=== PATIENT | male | born 1965 | race Caucasian/White ===

== ENCOUNTER 2019-04-11 17:09 | Inpatient (IN) | payer MEDICAID ==
[~2019-04-11] VITALS: Ht 172.7 cm; Wt 101.2 kg
[~2019-04-11 17:09] MED LIST: IBUP200T76 PO
[2019-04-11] MEDS ORDERED: cloNIDine HCL 0.1 MG TAB PO ONE ×2 (18:00→20:30)
[2019-04-11 20:30] LABS: Basophils # (auto) 0.1 uL; Basophils % (auto) 0.7 % (0.0-2.0); Eosinophils # (auto) 0.6 uL; Eosinophils % (auto) 6.4 % (0.0-7.0); Hematocrit 45.5 % (41.0-53.0); Hemoglobin 15.4 g/dL (13.5-17.5); Lymphocytes # (auto) 2.6 uL; Lymphocytes % (auto) 27.4 % (10.0-50.0); Mean Corpuscular Hemoglobin 30.5 pg (28.0-32.0); Mean Corpuscular Hgb Conc. 33.8 g/dL (32.0-36.0); Mean Corpuscular Volume 90.2 fL (80.0-100.0); Monocytes % (auto) 10.6 % (0.0-12.0); Neutrophils # (auto) 5.3 uL; Neutrophils % (auto) 54.9 % (37.0-80.0); Platelet Count (auto) 247 10^3/uL (140-450); Red Blood Cells 5.04 10^6/uL (4.5-5.90); Red Cell Distribution Width 13.3 % (11.8-14.3); White Blood Cell 9.6 10^3/uL (4.4-10.8)
[2019-04-11 20:55] LABS: Calcium 8.9 mg/dL (8.5-10.1); Potassium 3.7 mmol/L (3.5-5.1)
[2019-04-11 21:00] LABS: Albumin 2.9 g/dL (3.4-5.0); Bilirubin, Total 0.2 mg/dL (0.2-1.0); Total Protein 7.4 g/dL (6.4-8.2)
[2019-04-11] MEDS ORDERED: hydrALAZINE HCL 20 MG/ML VL IV ONE (21:30)
[2019-04-11] MEDS ORDERED: PIPERACILLIN-TAZOB 3.375GM 100 ML IV ONE (21:30)
[2019-04-11] MEDS ORDERED: VANCOMYCIN 1GM/250ML 250 ML IV ONE (21:30)
[2019-04-11 22:31] LABS: Urine WBC None Seen /hpf (0 - 3)
[2019-04-11 22:59] LABS: Urine Bacteria NONE SEEN /hpf (None Seen); Urine Blood Negative /uL (Negative); Urine Specific Gravity 1.016 (1.001-1.035); Urine Sperm PRESENT /hpf (None Seen)
[2019-04-11] MEDS ORDERED: LORazepam 2MG/ML-1ML VIAL IV ONE (23:15)
[2019-04-12] MEDS ORDERED: DILTIAZEM HCL 25 MG/5 ML VIAL IV ONE (00:30)
[2019-04-12] MEDS ORDERED: ACETAMINOPHEN 325 MG TAB PO PRN (00:45)
[2019-04-12] MEDS ORDERED: ONDANSETRON HCL 4 MG/2 ML VIAL IV PRN (00:45)
[2019-04-12] MEDS ORDERED: TEMAZEPAM 15 MG CAP PO PRN (00:45)
[2019-04-12] MEDS ORDERED: traMADol HCL 50 MG TAB PO PRN (00:45)
[2019-04-12] MEDS ORDERED: LABETALOL HCL 5 MG/ML ML 20ML VIAL IV ONE (02:15)
[2019-04-12] MEDS ORDERED: LORazepam 0.5 MG TAB PO PRN (02:15)
[2019-04-12] MEDS: CLINDAMYCIN 600MG IV 50 ML IV SCH ×2 (05:32→14:12)
[2019-04-12 06:06] LABS: Basophils # (auto) 0.1 uL; Basophils % (auto) 0.6 % (0.0-2.0); Eosinophils # (auto) 0.6 uL; Eosinophils % (auto) 6.2 % (0.0-7.0); Hematocrit 45.2 % (41.0-53.0); Hemoglobin 15.3 g/dL (13.5-17.5); Lymphocytes # (auto) 2.9 uL; Lymphocytes % (auto) 27.9 % (10.0-50.0); Mean Corpuscular Hemoglobin 30.7 pg (28.0-32.0); Mean Corpuscular Hgb Conc. 33.8 g/dL (32.0-36.0); Mean Corpuscular Volume 90.8 fL (80.0-100.0); Monocytes # (auto) 0.9 uL; Monocytes % (auto) 9.1 % (0.0-12.0); Neutrophils # (auto) 5.9 uL; Neutrophils % (auto) 56.2 % (37.0-80.0); Platelet Count (auto) 229 10^3/uL (140-450); Red Blood Cells 4.98 10^6/uL (4.5-5.90); Red Cell Distribution Width 13.4 % (11.8-14.3); White Blood Cell 10.4 10^3/uL (4.4-10.8)
[2019-04-12 06:31] LABS: BUN/Creatinine Ratio 20.5; Calcium 8.3 mg/dL (8.5-10.1); Potassium 3.3 mmol/L (3.5-5.1)
[2019-04-12] MEDS ORDERED: buPROPion HCL 75 MG TAB PO SCH (07:00)
[2019-04-12] MEDS: NICARDIPINE 25MG/250ML BAG KIT 250 ML IV SCH ×2 (07:14→11:36)
[2019-04-12] MEDS ORDERED: cefTRIAXone 1GM/50ML D5W 50 ML IV SCH (09:00)
[2019-04-12] MEDS ORDERED: METOPROLOL TARTRATE 50 MG TAB PO SCH (10:00)
[2019-04-12] MEDS ORDERED: PANTOPRAZOLE 40 MG TAB PO SCH (10:00)
[2019-04-12] MEDS ORDERED: NICOTINE 14 MG/24HR TOPICAL PATCH TD SCH (10:00)
--- NOTE | 2019-04-12 10:52 | NUR ---
WOUND CARE NOTE: Wound care in to see patient per wound care request regarding Left elbow wound. Patient is 54 years old male with admitting diagnosis of Left Upper Extremity Cellulitis. He has history of High Lipids and Htn. Patient is resting in E.R. bed #6. He's waiting for ICU bed. Patient's eyes are closed, respond to verbal and tactile stimuli. Mild pain noted upon touching his Lt upper extremity. ER nurse Prudence reported that patient is ambulatory and able to turn and reposition self. His Juan score is 17. Noted 4x5cm open full thickness wound with no measurable depth to patient's L elbow. Wound is bright red, edematous with yellow necrotic tissue at center. L elbow wound is draining moderate amount of serous drainage, no odor noted. Per RN nursing notes, wound culture specimen already sent to lab for processing. Patient is very sleepy and unable to give information about his elbow wound. ARIS Foss reported that wound is from suspected "spider bite". Cleansed patient's Lt elbow wound with wound cleanser, patted dry with sterile gauze, applied Thera honey gel at wound base,covered with non-adhesive Opti foam, wrapped with Kerlix and secured with tape. Patient tolerated well. Unable to assess patient's sacral and back as patient is very sleepy, just medicated for nausea. Per ARIS Foss's report, patient can ambulate, turn and reposition himself and no other wound or pressure injury noted on skin examination. RECOMMENDATION: Daily/PRN dressing change to L elbow wound per MD order, Dietary consult, elevate affected extremity on pillows,redistribute pressure points with pillows, continue monitoring by wound care while patient is hospitalized. Addendum: 04/12/19 at 1242 by Arelis Mendez RN Amended: Links added.
[2019-04-12] MEDS ORDERED: LEVO500T21 PO (14:09)
[2019-04-12] MEDS ORDERED: CLIN300C8 PO (14:09)
[2019-04-12] MEDS ORDERED: MET50T PO (14:09)
[2019-04-12 14:30] VITALS: BP 135/98
== END 2019-04-12 15:43 | disposition home health service (06) | DRG 383 ==
LOC: ER 17:09 → TELE 17:10
PROVIDERS: ADMIT Nurse Practitioner Family; ATTEND Nurse Practitioner Family
DX: L03.114 Cellulitis of left upper limb (principal); E78.5 Hyperlipidemia, unspecified; I16.1 Hypertensive emergency; I10 Essential (primary) hypertension; L02.91 Cutaneous abscess, unspecified; L02.414 Cutaneous abscess of left upper limb; F17.210 Nicotine dependence, cigarettes, uncomplicated; Z88.5 Allergy status to narcotic agent; Z79.899 Other long term (current) drug therapy
CPT/HCPCS: 36415; 70450; 73200; 80048; 80053; 81001; 83605; 85025; 87040; 87077; 87186; 87205; 96365; 96366; 96367; 96375; G0378; J0696; J2543; J3490

== ENCOUNTER 2020-08-01 07:47 | Inpatient (IN) | payer MEDICAID ==
[~2020-08-01] VITALS: Ht 177.8 cm; Wt 97.9 kg
[~2020-08-01 07:47] MED LIST changes: +CLIN300C8 PO; +LEVO500T21 PO; +MET50T PO
[2020-08-01 08:59] LABS: Basophils # (auto) 0 10 ^3/uL (0-0.2); Basophils % (auto) 0.2 % (0.0-2.0); Eosinophils # (auto) 0 10 ^3/uL (0-0.8); Eosinophils % (auto) 0.1 % (0.0-7.0); Hemoglobin 19.1 g/dL (13.5-17.5); Mean Corpuscular Hgb Conc. 34.8 g/dL (32.0-36.0)
[2020-08-01 09:01] LABS: Hematocrit 54.8 % (41.0-53.0); Lymphocytes # (auto) 2.3 10 ^3/uL (0.4-5.4); Lymphocytes % (auto) 23.7 % (10.0-50.0); Mean Corpuscular Hemoglobin 32.2 pg (28.0-32.0); Mean Corpuscular Volume 92.6 fL (80.0-100.0); Monocytes # (auto) 1.2 10 ^3/uL (0-1.3); Monocytes % (auto) 12.3 % (0.0-12.0); Neutrophils # (auto) 6.2 10 ^3/uL (1.6-8.6); Neutrophils % (auto) 63.7 % (37.0-80.0); Nucleated Red Blood Cells % 0.2 %; Platelet Count (auto) 169 10^3/uL (140-450); Red Blood Cells 5.92 10^6/uL (4.5-5.90); Red Cell Distribution Width 13.9 % (11.8-14.3); White Blood Cell 9.8 10^3/uL (4.4-10.8)
[2020-08-01] MEDS ORDERED: cefTRIAXone 1GM/50ML D5W 50 ML IV ONE (09:15)
[2020-08-01] MEDS ORDERED: AZITHROMYCIN 500MG/ 250ML 250 ML IV ONE (09:15)
[2020-08-01 09:25] LABS: Albumin 3.4 g/dL (3.4-5.0); BUN/Creatinine Ratio 19.7; Bilirubin, Total 0.8 mg/dL (0.2-1.0); Calcium 9.1 mg/dL (8.5-10.1); Total Protein 8.9 g/dL (6.4-8.2)
[2020-08-01 09:26] LABS: Potassium 2.8 mmol/L (3.5-5.1)
[2020-08-01] MEDS ORDERED: dilTIAZem 25 MG/5 ML VIAL IV ONE ×2 (10:15→10:16)
[2020-08-01] MEDS ORDERED: dilTIAZem 125mg/125ml BAG KIT 125 ML IV ONE (10:15)
[2020-08-01] MEDS ORDERED: ENOXAPARIN SOD 100 MG/1 ML SYRINGE SC ONE ×2 (12:15→13:30)
[2020-08-01] MEDS ORDERED: NITROGLYCERIN 0.4 MG SL TAB SL PRN (12:45)
[2020-08-01] MEDS ORDERED: DexAMETHasone SOD PHOS 10MG/1ML VIAL INJ IV ONE (12:45)
[2020-08-01] MEDS ORDERED: METOPROLOL TARTRATE 50 MG TAB PO ONE (12:45)
[2020-08-01] MEDS ORDERED: PANTOPRAZOLE 40 MG/10 ML VIAL INJ IV ONE (12:45)
[2020-08-01] MEDS ORDERED: METOPROLOL TARTRATE 1MG/1ML-5ML VIAL IV PRN (12:45)
[2020-08-01] MEDS ORDERED: PROMETHAZINE HCL 25 MG/ML 1ML IV PRN (12:45)
[2020-08-01] MEDS ORDERED: levoFLOXacin 500MG 100 ML IV ONE (13:30)
[2020-08-01] MEDS: POTASSIUM CHL 20MEQ/100ML 100 ML IV SCH ×2 (13:53→17:07)
[2020-08-01] MEDS ORDERED: ALBUTEROL SULF HFA 90MCG INH 200DOSE IN SCH (14:00)
[2020-08-01 14:25] LABS: CRP High Sensitivity 1.94 mg/dL (< 0.3)
[2020-08-01] MEDS: ALBUTEROL SULF HFA 90MCG INH 200DOSE IN SCH ×2 (14:25→19:36)
[2020-08-01 15:32] LABS: Urine Bacteria NONE SEEN /hpf (None Seen); Urine Blood 1+ /uL (Negative); Urine Mucus FEW (None Seen); Urine Specific Gravity 1.026 (1.001-1.035); Urine WBC 3 /hpf (0 - 3)
[2020-08-01] MEDS ORDERED: TRAM50TA2 PO (15:45)
[2020-08-01] MEDS ORDERED: HCTZ25T PO (15:45)
[2020-08-01] MEDS ORDERED: BACL10TA PO (15:45)
[2020-08-01] MEDS ORDERED: OMEP-260 PO (15:45)
[2020-08-01] MEDS ORDERED: CLON0.1T14 PO (15:45)
[2020-08-01] MEDS ORDERED: IBUP800T24 PO (15:45)
[2020-08-01] MEDS ORDERED: BUPR75TA9 PO (15:45)
[2020-08-01] MEDS ORDERED: IOHEXOL 350 MG/ML 100ML IJ ONE (16:09)
[2020-08-01] MEDS: BUDESONIDE (INHALATION) 180 MCG IH IN SCH (19:36)
[2020-08-01] MEDS: ENOXAPARIN SOD 100 MG/1 ML SYRINGE SC SCH (21:38)
[2020-08-01] MEDS: ASCORBIC ACID 500 MG TAB PO SCH (21:39)
[2020-08-01] MEDS ORDERED: METOPROLOL TARTRATE 50 MG TAB PO SCH (22:00)
[2020-08-01] MEDS ORDERED: METOPROLOL TARTRATE 25 MG TAB PO ONE (22:30)
[2020-08-02 00:53] LABS: BUN/Creatinine Ratio 23.8; Calcium 8.3 mg/dL (8.5-10.1); Magnesium 2.1 mg/dL (1.6-2.6); Potassium 3.5 mmol/L (3.5-5.1)
[2020-08-02 02:44] VITALS: BP 139/101
[2020-08-02] MEDS ORDERED: dilTIAZem 25 MG/5 ML VIAL IV ONE (04:18)
[2020-08-02] MEDS ORDERED: dilTIAZem HCL 50 MG/10 ML VIAL IV ONE (04:21)
[2020-08-02 05:52] LABS: Basophils # (auto) 0 10 ^3/uL (0-0.2); Basophils % (auto) 0.1 % (0.0-2.0); Eosinophils # (auto) 0 10 ^3/uL (0-0.8); Hematocrit 50.9 % (41.0-53.0); Hemoglobin 17.1 g/dL (13.5-17.5); Lymphocytes # (auto) 1.6 10 ^3/uL (0.4-5.4); Lymphocytes % (auto) 24.4 % (10.0-50.0); Mean Corpuscular Hemoglobin 31.2 pg (28.0-32.0); Mean Corpuscular Hgb Conc. 33.6 g/dL (32.0-36.0); Mean Corpuscular Volume 92.8 fL (80.0-100.0); Monocytes # (auto) 1.2 10 ^3/uL (0-1.3); Monocytes % (auto) 17.8 % (0.0-12.0); Neutrophils # (auto) 3.8 10 ^3/uL (1.6-8.6); Neutrophils % (auto) 57.7 % (37.0-80.0); Nucleated Red Blood Cells % 0.8 %; Platelet Count (auto) 156 10^3/uL (140-450); Red Blood Cells 5.48 10^6/uL (4.5-5.90); Red Cell Distribution Width 13.5 % (11.8-14.3); White Blood Cell 6.6 10^3/uL (4.4-10.8)
[2020-08-02] MEDS: ALBUTEROL SULF HFA 90MCG INH 200DOSE IN SCH ×4 (06:00→21:15)
[2020-08-02 06:13] LABS: Albumin 2.8 g/dL (3.4-5.0); BUN/Creatinine Ratio 24.5; Magnesium 2.3 mg/dL (1.6-2.6); Potassium 3.7 mmol/L (3.5-5.1)
[2020-08-02 06:15] LABS: Bilirubin, Total 0.4 mg/dL (0.2-1.0); Total Protein 7.8 g/dL (6.4-8.2)
[2020-08-02] MEDS: BUDESONIDE (INHALATION) 180 MCG IH IN SCH ×2 (07:07→21:15)
--- NOTE | 2020-08-02 07:07 | NUR ---
PT ON 7L SM WITH SPO2 94% AND WAS EDUCATED REGARDING PRONING TO IMPROVE OXYGENATION. PT VERBALIZED UNDERSTANDING.
[2020-08-02] MEDS ORDERED: METOPROLOL TARTRATE 50 MG TAB PO SCH (10:00)
[2020-08-02] MEDS: levoFLOXacin 500MG 100 ML IV SCH (10:30)
[2020-08-02] MEDS: DexAMETHasone SOD PHOS 10MG/1ML VIAL INJ IV SCH (10:30)
[2020-08-02] MEDS: ZINC SULFATE 220mg CAP or TAB PO SCH (10:31)
[2020-08-02] MEDS: PANTOPRAZOLE 40 MG/10 ML VIAL INJ IV SCH (10:31)
[2020-08-02] MEDS: ASCORBIC ACID 500 MG TAB PO SCH ×2 (10:32→22:29)
[2020-08-02] MEDS: CHOLECALCIFEROL (VITD3) 2,000 UNIT CAP PO SCH (10:32)
[2020-08-02] MEDS: ENOXAPARIN SOD 100 MG/1 ML SYRINGE SC SCH (10:32)
[2020-08-02] MEDS ORDERED: METOPROLOL TARTRATE 25 MG TAB PO ONE (10:45)
[2020-08-02] MEDS: guaiFENesin-DM 100/10mg/5ml SYR PO PRN ×2 (15:19→22:32)
[2020-08-02] MEDS ORDERED: POTASSIUM CHL 20 Meq TABLET PO ONE (18:30)
[2020-08-02] MEDS: METOPROLOL TARTRATE 50 MG TAB PO SCH (22:28)
[2020-08-03] MEDS: guaiFENesin-DM 100/10mg/5ml SYR PO PRN ×3 (02:31→18:39)
[2020-08-03] MEDS ORDERED: LABETALOL HCL 5 MG/ML 4ML SYRINGE IV ONE (03:15)
[2020-08-03] MEDS: HYDROcodone-ACET 5/325MG TAB PO PRN ×2 (03:39→04:45)
[2020-08-03 06:22] LABS: Basophils # (auto) 0 10 ^3/uL (0-0.2); Basophils % (auto) 0.1 % (0.0-2.0); Eosinophils # (auto) 0 10 ^3/uL (0-0.8); Hematocrit 47.8 % (41.0-53.0); Hemoglobin 16.2 g/dL (13.5-17.5); Lymphocytes # (auto) 1.1 10 ^3/uL (0.4-5.4); Lymphocytes % (auto) 9.8 % (10.0-50.0); Mean Corpuscular Hemoglobin 31.7 pg (28.0-32.0); Mean Corpuscular Hgb Conc. 33.9 g/dL (32.0-36.0); Mean Corpuscular Volume 93.3 fL (80.0-100.0); Monocytes # (auto) 1.2 10 ^3/uL (0-1.3); Monocytes % (auto) 10.8 % (0.0-12.0); Neutrophils # (auto) 8.6 10 ^3/uL (1.6-8.6); Neutrophils % (auto) 79.3 % (37.0-80.0); Nucleated Red Blood Cells % 0.1 %; Platelet Count (auto) 167 10^3/uL (140-450); Red Blood Cells 5.12 10^6/uL (4.5-5.90); Red Cell Distribution Width 13.6 % (11.8-14.3); White Blood Cell 10.8 10^3/uL (4.4-10.8)
[2020-08-03] MEDS ORDERED: dilTIAZem 25 MG/5 ML VIAL IV ONE (06:30)
[2020-08-03] MEDS ORDERED: hydrALAZINE HCL 20 MG/ML VL IV ONE (06:30)
[2020-08-03 06:41] LABS: Calcium 7.9 mg/dL (8.5-10.1); Potassium 3.5 mmol/L (3.5-5.1)
[2020-08-03 06:42] LABS: CRP High Sensitivity 0.73 mg/dL (< 0.3)
[2020-08-03] MEDS: ALBUTEROL SULF HFA 90MCG INH 200DOSE IN SCH ×3 (08:16→23:43)
[2020-08-03] MEDS: BUDESONIDE (INHALATION) 180 MCG IH IN SCH ×2 (08:17→23:43)
[2020-08-03] MEDS ORDERED: REMDESIVIR PER PHARMACY IV SCH (11:15)
[2020-08-03] MEDS ORDERED: REMDESIVIR 200 MG in NS 210ml LOADING DOSE ADULT IV ONE (12:00)
[2020-08-03] MEDS: METOPROLOL TARTRATE 50 MG TAB PO SCH ×2 (12:03→23:02)
[2020-08-03] MEDS: levoFLOXacin 500MG 100 ML IV SCH (12:04)
[2020-08-03] MEDS: DexAMETHasone SOD PHOS 10MG/1ML VIAL INJ IV SCH (12:04)
[2020-08-03] MEDS: ASPirin 325 MG TAB PO SCH (12:04)
[2020-08-03] MEDS: CHOLECALCIFEROL (VITD3) 2,000 UNIT CAP PO SCH (12:04)
[2020-08-03] MEDS: ASCORBIC ACID 500 MG TAB PO SCH ×2 (12:04→23:02)
[2020-08-03] MEDS: ZINC SULFATE 220mg CAP or TAB PO SCH (12:04)
[2020-08-03] MEDS: ENOXAPARIN SOD 40 MG/0.4 ML SYRINGE SC SCH (12:04)
[2020-08-03] MEDS: PANTOPRAZOLE 40 MG/10 ML VIAL INJ IV SCH (12:05)
[2020-08-03] MEDS ORDERED: ALPRAZolam 0.25 MG TAB PO PRN (16:15)
[2020-08-03] MEDS ORDERED: POTASSIUM EFFERVESENT TAB 25 MEQ PO ONE (20:00)
[2020-08-04] MEDS: METOPROLOL TARTRATE 50 MG TAB PO SCH ×2 (00:40→22:00)
[2020-08-04] MEDS: hydrALAZINE HCL 20 MG/ML VL IV PRN ×2 (01:03→09:06)
[2020-08-04 03:40] VITALS: BP 186/113
[2020-08-04] MEDS ORDERED: amLODIPine BESYLATE 5 MG TAB PO ONE (04:30)
[2020-08-04] MEDS ORDERED: ALPRAZolam 0.25 MG TAB PO ONE (04:30)
[2020-08-04] MEDS ORDERED: HCTZ 25 MG TAB PO ONE (04:30)
[2020-08-04 06:40] VITALS: BP 141/123
[2020-08-04] MEDS: BUDESONIDE (INHALATION) 180 MCG IH IN SCH ×2 (06:40→22:00)
[2020-08-04] MEDS: ALBUTEROL SULF HFA 90MCG INH 200DOSE IN SCH ×3 (06:40→22:00)
[2020-08-04 07:13] LABS: Basophils # (auto) 0 10 ^3/uL (0-0.2); Eosinophils # (auto) 0 10 ^3/uL (0-0.8); Hematocrit 51.9 % (41.0-53.0); Hemoglobin 17.1 g/dL (13.5-17.5); Lymphocytes % (auto) 10.8 % (10.0-50.0); Mean Corpuscular Hemoglobin 30.9 pg (28.0-32.0); Mean Corpuscular Volume 93.4 fL (80.0-100.0); Monocytes # (auto) 1.2 10 ^3/uL (0-1.3); Monocytes % (auto) 11.9 % (0.0-12.0); Neutrophils # (auto) 7.5 10 ^3/uL (1.6-8.6); Neutrophils % (auto) 77.3 % (37.0-80.0); Nucleated Red Blood Cells % 0.2 %; Platelet Count (auto) 187 10^3/uL (140-450); Red Blood Cells 5.55 10^6/uL (4.5-5.90); Red Cell Distribution Width 13.4 % (11.8-14.3); White Blood Cell 9.7 10^3/uL (4.4-10.8)
[2020-08-04 07:26] LABS: Calcium 8.4 mg/dL (8.5-10.1); Potassium 3.4 mmol/L (3.5-5.1)
[2020-08-04] MEDS ORDERED: LORazepam 2MG/ML-1ML VIAL IV ONE (07:30)
[2020-08-04 07:36] LABS: BUN/Creatinine Ratio 19.6; CRP High Sensitivity 1.74 mg/dL (< 0.3)
[2020-08-04] MEDS: ASCORBIC ACID 500 MG TAB PO SCH ×2 (08:32→22:00)
[2020-08-04] MEDS: ENOXAPARIN SOD 40 MG/0.4 ML SYRINGE SC SCH (08:32)
[2020-08-04] MEDS: levoFLOXacin 500MG 100 ML IV SCH (08:32)
[2020-08-04] MEDS: ZINC SULFATE 220mg CAP or TAB PO SCH (08:32)
[2020-08-04] MEDS: guaiFENesin-DM 100/10mg/5ml SYR PO PRN (08:32)
[2020-08-04] MEDS: CHOLECALCIFEROL (VITD3) 2,000 UNIT CAP PO SCH (08:32)
[2020-08-04] MEDS: PANTOPRAZOLE 40 MG/10 ML VIAL INJ IV SCH (08:32)
[2020-08-04] MEDS: DexAMETHasone SOD PHOS 10MG/1ML VIAL INJ IV SCH (08:32)
[2020-08-04] MEDS: ASPirin 325 MG TAB PO SCH (08:32)
[2020-08-04] MEDS: HYDROcodone-ACET 5/325MG TAB PO PRN (09:05)
[2020-08-04] MEDS ORDERED: ALPRAZolam 0.25 MG TAB PO PRN (10:00)
[2020-08-04] MEDS ORDERED: PROPOFOL 100 ML IV ONE (10:40)
[2020-08-04] MEDS ORDERED: SUCCINYLCHOLINE CHLORIDE 20 MG/ML 10ML VIAL IV ONE ×2 (10:41→10:45)
[2020-08-04] MEDS ORDERED: ETOMIDATE (2MG/ML) 20ML VIAL IV ONE ×2 (10:43→10:45)
[2020-08-04] MEDS ORDERED: MIDAZOLAM DRIP 50 mg/50mL 50 ML IV ONE (10:43)
[2020-08-04 10:52] LABS: Albumin 3.1 g/dL (3.4-5.0); Bilirubin, Direct 0.4 mg/dL (0-0.2)
[2020-08-04 10:55] LABS: Bilirubin, Total 0.7 mg/dL (0.2-1.0)
[2020-08-04] MEDS: MIDAZOLAM DRIP 50 mg/50mL 50 ML IV SCH ×4 (10:55→23:30)
[2020-08-04] MEDS: PROPOFOL 100 ML IV SCH ×4 (10:55→23:30)
[2020-08-04 12:07] VITALS: BP 114/79
--- NOTE | 2020-08-04 12:50 | NUR ---
Hold PT, pt was intubated.
[2020-08-04] MEDS: REMDESIVIR 100mg in NS 230ml DAILYx4DAYS (NO VENT) IV SCH (16:27)
[2020-08-04] MEDS ORDERED: ACETAMINOPHEN 650 mg PER 20.3 mL UD GT ONE (18:00)
[2020-08-04 18:40] VITALS: BP 121/90
[2020-08-04 22:46] VITALS: BP 118/77
[2020-08-05] VITALS (8 sets, daily range): BP systolic 118–145; BP diastolic 58–100
[2020-08-05] MEDS: PROPOFOL 100 ML IV SCH ×4 (06:00→23:51)
[2020-08-05] MEDS: MIDAZOLAM DRIP 50 mg/50mL 50 ML IV SCH ×4 (06:00→23:49)
[2020-08-05 06:45] LABS: Basophils # (auto) 0 10 ^3/uL (0-0.2); Eosinophils # (auto) 0 10 ^3/uL (0-0.8); Hematocrit 49.7 % (41.0-53.0); Hemoglobin 16.7 g/dL (13.5-17.5); Lymphocytes # (auto) 1.2 10 ^3/uL (0.4-5.4); Lymphocytes % (auto) 15.4 % (10.0-50.0); Mean Corpuscular Hemoglobin 31.3 pg (28.0-32.0); Mean Corpuscular Hgb Conc. 33.6 g/dL (32.0-36.0); Mean Corpuscular Volume 93.4 fL (80.0-100.0); Monocytes # (auto) 1.2 10 ^3/uL (0-1.3); Monocytes % (auto) 15.7 % (0.0-12.0); Neutrophils # (auto) 5.2 10 ^3/uL (1.6-8.6); Neutrophils % (auto) 68.9 % (37.0-80.0); Nucleated Red Blood Cells % 0.1 %; Platelet Count (auto) 200 10^3/uL (140-450); Red Blood Cells 5.32 10^6/uL (4.5-5.90); Red Cell Distribution Width 13.6 % (11.8-14.3); White Blood Cell 7.6 10^3/uL (4.4-10.8)
[2020-08-05 07:06] LABS: Calcium 7.9 mg/dL (8.5-10.1); Magnesium 2.8 mg/dL (1.6-2.6); Potassium 3.2 mmol/L (3.5-5.1)
[2020-08-05 07:17] LABS: CRP High Sensitivity 3.89 mg/dL (< 0.3)
[2020-08-05] MEDS: levoFLOXacin 500MG 100 ML IV SCH (09:47)
[2020-08-05] MEDS: ASCORBIC ACID 500 MG TAB PO SCH ×2 (09:47→22:28)
[2020-08-05] MEDS: PANTOPRAZOLE 40 MG/10 ML VIAL INJ IV SCH (09:47)
[2020-08-05] MEDS: ASPirin 325 MG TAB PO SCH (09:47)
[2020-08-05] MEDS: ENOXAPARIN SOD 40 MG/0.4 ML SYRINGE SC SCH (09:47)
[2020-08-05] MEDS: CHOLECALCIFEROL (VITD3) 2,000 UNIT CAP PO SCH (09:47)
[2020-08-05] MEDS: DexAMETHasone SOD PHOS 10MG/1ML VIAL INJ IV SCH (09:47)
[2020-08-05] MEDS: ZINC SULFATE 220mg CAP or TAB PO SCH (09:48)
[2020-08-05] MEDS: METOPROLOL TARTRATE 50 MG TAB PO SCH (10:00)
--- NOTE | 2020-08-05 12:00 | NUR ---
WOUND CARE NOTE: NOTIFIED BY BEDSIDE NURSE OF PATIENT'S INTUBATION STATUS. PATIENT IN ER BED 6, ICU STATUS. PATIENT AIRBORNE ISOLATION, ADMITTING DIAGNOSIS PNA, AFIB. PER BEDSIDE NURSE, PATIENT IS WOUND FREE AT THIS TIME. IMPLEMENTED SKIN/WOUND CARE PLAN AT THIS TIME. ORDERED HOSPITAL BED FOR PATIENT. PATIENT TO BE PLACED, PENDING DELIVERY BY E COMMERCE MANAGER. CURRENT SUKHI SCORE 10. RECOMMEND: FREQUENT TURN SCHEDULE Q 2 HOURS PRN CONDITION PERMITS, WITH PRESSURE REDISTRIBUTION, USING PILLOWS/WEDGES; BID/PRN APPLICATION WITH MOISTURE BARRIER CREAM, OPTIFOAM GENTLE SACRAL DRESSING PREVENTATIVE; SKIN/WOUND CARE PLAN, DIETARY CONSULT FOR INTUBATION STATUS, CONTINUED MONITORING BY WOUND CARE TEAM.
[2020-08-05] MEDS: REMDESIVIR 100mg in NS 230ml DAILYx4DAYS (NO VENT) IV SCH (16:59)
[2020-08-05] MEDS: ALBUTEROL SULF 2.5 MG/0.5ML(0.5%) NEB SOLN NEB SCH (23:26)
[2020-08-05] MEDS: BUDESONIDE (INHALATION) 0.5 MG/2 ML NEB NEB SCH (23:26)
[2020-08-06 02:07] VITALS: BP 126/88
[2020-08-06] MEDS: PROPOFOL 100 ML IV SCH ×5 (03:58→22:24)
[2020-08-06] MEDS: MIDAZOLAM DRIP 50 mg/50mL 50 ML IV SCH ×5 (03:59→23:13)
[2020-08-06 06:57] VITALS: BP 126/88
[2020-08-06] MEDS: ALBUTEROL SULF 2.5 MG/0.5ML(0.5%) NEB SOLN NEB SCH ×3 (06:57→22:10)
[2020-08-06] MEDS: BUDESONIDE (INHALATION) 0.5 MG/2 ML NEB NEB SCH ×2 (06:57→22:10)
[2020-08-06 08:53] LABS: Basophils # (auto) 0 10 ^3/uL (0-0.2); Eosinophils # (auto) 0 10 ^3/uL (0-0.8); Eosinophils % (auto) 0.1 % (0.0-7.0); Hematocrit 51.4 % (41.0-53.0); Hemoglobin 17.2 g/dL (13.5-17.5); Lymphocytes # (auto) 1.6 10 ^3/uL (0.4-5.4); Lymphocytes % (auto) 17.7 % (10.0-50.0); Mean Corpuscular Hemoglobin 31.5 pg (28.0-32.0); Mean Corpuscular Hgb Conc. 33.5 g/dL (32.0-36.0); Monocytes # (auto) 1.4 10 ^3/uL (0-1.3); Monocytes % (auto) 14.6 % (0.0-12.0); Neutrophils # (auto) 6.3 10 ^3/uL (1.6-8.6); Neutrophils % (auto) 67.6 % (37.0-80.0); Nucleated Red Blood Cells % 0.4 %; Platelet Count (auto) 243 10^3/uL (140-450); Red Blood Cells 5.46 10^6/uL (4.5-5.90); Red Cell Distribution Width 13.5 % (11.8-14.3); White Blood Cell 9.3 10^3/uL (4.4-10.8)
[2020-08-06 09:09] LABS: Albumin 2.5 g/dL (3.4-5.0); Magnesium 3.1 mg/dL (1.6-2.6); Potassium 3.4 mmol/L (3.5-5.1)
[2020-08-06 09:14] LABS: BUN/Creatinine Ratio 29.4; Bilirubin, Total 0.5 mg/dL (0.2-1.0); Total Protein 7.3 g/dL (6.4-8.2)
[2020-08-06 09:53] VITALS: BP 139/92
[2020-08-06] MEDS: PANTOPRAZOLE 40 MG/10 ML VIAL INJ IV SCH (10:40)
[2020-08-06] MEDS: DexAMETHasone SOD PHOS 10MG/1ML VIAL INJ IV SCH (10:40)
[2020-08-06] MEDS: ENOXAPARIN SOD 40 MG/0.4 ML SYRINGE SC SCH (10:42)
[2020-08-06] MEDS: levoFLOXacin 500MG 100 ML IV SCH (10:47)
[2020-08-06] MEDS: CHOLECALCIFEROL (VITD3) 2,000 UNIT CAP PO SCH (10:54)
[2020-08-06] MEDS: ASPirin 325 MG TAB PO SCH (10:54)
[2020-08-06] MEDS: ASCORBIC ACID 500 MG TAB PO SCH ×2 (10:54→20:48)
[2020-08-06] MEDS: ZINC SULFATE 220mg CAP or TAB PO SCH (10:54)
--- NOTE | 2020-08-06 11:30 | NUR ---
Nutrition Consult for Intubation Consider Jevity 1.2 at a goal rate of 65 ml/hr Consider TPN if TF is not medically feasible Est energy needs 1286-7993 kcal (14-18 kcal/kg BW 113.4kg) Est protein needs 75-98g (1-1.3g/kg IBW 75kg) Will monitor and reassess prn. Addendum: 08/06/20 at [address] Amended: Links added.
[2020-08-06 14:36] VITALS: BP 145/113
[2020-08-06] MEDS: REMDESIVIR 100mg in NS 230ml DAILYx4DAYS (NO VENT) IV SCH (16:45)
[2020-08-06 18:15] VITALS: BP 145/113
[2020-08-06 22:10] VITALS: BP 145/113
[2020-08-07] MEDS: PROPOFOL 100 ML IV SCH ×5 (00:47→21:00)
[2020-08-07 02:15] VITALS: BP 135/107
[2020-08-07] MEDS: MIDAZOLAM DRIP 50 mg/50mL 50 ML IV SCH ×4 (04:30→22:38)
[2020-08-07 06:45] VITALS: BP 161/103
[2020-08-07] MEDS: ALBUTEROL SULF 2.5 MG/0.5ML(0.5%) NEB SOLN NEB SCH ×3 (06:45→22:33)
[2020-08-07] MEDS: BUDESONIDE (INHALATION) 0.5 MG/2 ML NEB NEB SCH ×2 (06:45→22:33)
[2020-08-07] MEDS ORDERED: PROPOFOL 100 ML IV ONE (07:29)
[2020-08-07 08:36] LABS: Potassium 3.5 mmol/L (3.5-5.1)
[2020-08-07 08:45] LABS: Albumin 2.6 g/dL (3.4-5.0); BUN/Creatinine Ratio 37.2; Bilirubin, Total 0.6 mg/dL (0.2-1.0); Total Protein 7.6 g/dL (6.4-8.2)
[2020-08-07] MEDS: levoFLOXacin 500MG 100 ML IV SCH (09:12)
[2020-08-07] MEDS: PANTOPRAZOLE 40 MG/10 ML VIAL INJ IV SCH (09:12)
[2020-08-07] MEDS: ASCORBIC ACID 500 MG TAB PO SCH ×2 (09:12→22:31)
[2020-08-07] MEDS: ASPirin 325 MG TAB PO SCH (09:13)
[2020-08-07] MEDS: ENOXAPARIN SOD 40 MG/0.4 ML SYRINGE SC SCH (09:13)
[2020-08-07] MEDS: ZINC SULFATE 220mg CAP or TAB PO SCH (09:16)
[2020-08-07] MEDS: CHOLECALCIFEROL (VITD3) 2,000 UNIT CAP PO SCH (09:16)
[2020-08-07] MEDS: DexAMETHasone SOD PHOS 10MG/1ML VIAL INJ IV SCH (09:16)
[2020-08-07 10:25] VITALS: BP 153/105
[2020-08-07] MEDS ORDERED: FUROSEMIDE 20 MG/2 ML VIAL IV ONE (11:30)
[2020-08-07 12:52] VITALS: BP 142/110
[2020-08-07] MEDS: REMDESIVIR 100mg in NS 230ml DAILYx4DAYS (NO VENT) IV SCH (16:42)
[2020-08-07 18:42] VITALS: BP 140/103
[2020-08-07] MEDS: ACETAMINOPHEN 650 MG RECT SUPP PR PRN (21:30)
[2020-08-07 21:41] VITALS: BP 139/99
[2020-08-08] VITALS (85 sets, daily range): BP systolic 119–160; BP diastolic 82–223
[2020-08-08] MEDS: MIDAZOLAM DRIP 50 mg/50mL 50 ML IV SCH ×6 (00:30→22:15)
--- NOTE | 2020-08-08 00:40 | NUR ---
PATIENT ARRIVED ON UNIT: PT. RECEIVED ON [facility] WITH DATA DESIGNER, ER RT, AND WELDER OPERATOR; V/S STABLE WITH PT. INTUBATED/SEDATED; PT. RR IN THE 30'S AND WILL ADJUST SEDATION PER PROTOCOL; WILL CONTINUE TO MONITOR.
[2020-08-08] MEDS: ENOXAPARIN SOD 100 MG/1 ML SYRINGE SC SCH (01:30)
[2020-08-08] MEDS: PROPOFOL 100 ML IV SCH ×5 (03:42→23:30)
[2020-08-08 04:02] LABS: Basophils # (auto) 0.1 10 ^3/uL (0-0.2); Basophils % (auto) 0.4 % (0.0-2.0); Eosinophils # (auto) 0.1 10 ^3/uL (0-0.8); Eosinophils % (auto) 0.8 % (0.0-7.0); Hematocrit 52.2 % (41.0-53.0); Hemoglobin 17.3 g/dL (13.5-17.5); Lymphocytes # (auto) 1.1 10 ^3/uL (0.4-5.4); Lymphocytes % (auto) 7.9 % (10.0-50.0); Mean Corpuscular Hemoglobin 31.4 pg (28.0-32.0); Mean Corpuscular Hgb Conc. 33.1 g/dL (32.0-36.0); Mean Corpuscular Volume 94.8 fL (80.0-100.0); Monocytes # (auto) 1.3 10 ^3/uL (0-1.3); Monocytes % (auto) 9.2 % (0.0-12.0); Neutrophils # (auto) 11.5 10 ^3/uL (1.6-8.6); Neutrophils % (auto) 81.7 % (37.0-80.0); Nucleated Red Blood Cells % 0.1 %; Platelet Count (auto) 284 10^3/uL (140-450); Red Blood Cells 5.51 10^6/uL (4.5-5.90); Red Cell Distribution Width 13.6 % (11.8-14.3); White Blood Cell 14.1 10^3/uL (4.4-10.8)
[2020-08-08 04:25] LABS: BUN/Creatinine Ratio 38.3; Calcium 8.1 mg/dL (8.5-10.1); Magnesium 3.2 mg/dL (1.6-2.6); Potassium 3.8 mmol/L (3.5-5.1)
[2020-08-08] MEDS: ALBUTEROL SULF 2.5 MG/0.5ML(0.5%) NEB SOLN NEB SCH ×3 (05:58→22:42)
[2020-08-08] MEDS: BUDESONIDE (INHALATION) 0.5 MG/2 ML NEB NEB SCH ×2 (05:59→22:43)
--- NOTE | 2020-08-08 10:39 | NUR ---
Nutrition Followup Note Pt wt 95.3kg Pt is intubated and sedated in ICU now with propofol running at 20.412 ml/hr providing 539 kcal from lipids. Pt is NPO with no alternate nutrition ordered. Consider starting pt on TF of Jevity 1.2 at a goal rate of 65 ml/hr when medically feasible Est energy needs 6778-6818 kcal (14-18 kcal/kg BW 113.4kg) Est protein needs 75-98g (1-1.3g/kg IBW 75kg) Will monitor and reassess prn. Labs: BUN 44H, GLUC 146H, Alb 2.6L, Ca 8.1H BM: Pt with no BM noted per RN note Skin: BS 10 high risk, full details in career technical education teacher note PES: Obesity r/t caloric intake excess of needs aeb pt with a BMI of 35.9kg/m2 Inadequate oral intake r/t current medical condition aeb pt NPO, intubated and sedated Comments: 1) Continue to monitor npo status, labs, skin 2) refer pt to OPD on DC 3)Continue current plan of care Expected Outcomes/Goals: 1) Consider starting pt on alternate nutrition if pt is NPO >48hrs 2) Consider Jevity 1.2 at a goal rate of 65 ml/hr 3) Consider TPN if TF is not medically feasible 4) advance diet as medically feasible 5) f/u 2-3 days
[2020-08-08] MEDS: ASPirin 325 MG TAB PO SCH (11:15)
[2020-08-08] MEDS: levoFLOXacin 500MG 100 ML IV SCH (11:15)
[2020-08-08] MEDS: ZINC SULFATE 220mg CAP or TAB PO SCH (11:15)
[2020-08-08] MEDS: ASCORBIC ACID 500 MG TAB PO SCH ×2 (11:15→22:00)
[2020-08-08] MEDS: PANTOPRAZOLE 40 MG/10 ML VIAL INJ IV SCH (11:15)
[2020-08-08] MEDS: DexAMETHasone SOD PHOS 10MG/1ML VIAL INJ IV SCH (11:15)
[2020-08-08] MEDS: CHOLECALCIFEROL (VITD3) 2,000 UNIT CAP PO SCH (11:15)
[2020-08-08] MEDS: ENOXAPARIN SOD 40 MG/0.4 ML SYRINGE SC SCH (11:15)
[2020-08-08] MEDS: hydrALAZINE HCL 20 MG/ML VL IV PRN (14:55)
--- NOTE | 2020-08-08 18:03 | NUR ---
RECEIVED PT ON VENT V20, VENT CHECK DONE FROM PTS ROOM DOOR DUE TO COVID PRECAUTIONS. VENT CONNECTED TO RED OUTLET AND O2 SOURCE ALARMS ARE SET AND AUDIBLE. AMBU BAG AND MASK AT BEDSIDE. PTS CURRENT TEMP IS 100.2F. COOLING MEASURES BEING TAKEN AT THIS TIME. NO CHANGES MADE WILL CONTINUE TO MONITOR.
--- NOTE | 2020-08-08 19:45 | NUR ---
Opening Shift Note: Neuro: bilateral pupils are 4 mm/brisk/reactive; moves all extremities with severe weakness with painful stimuli; does not open eyes; absent cough/gag. Cardio: ST 100s-110s; SBPs 120s-140s, DBPs 80s-100s; no edema noted; pulses all palpable. Respiratory: ET size 8.0/26 @ lip and was intubated by Dr. Mosher in ER on 08/04/20 related to increased WOB/not tolerating high flow; settings: AC rate 20, vT 500, FiO2 40%, and PEEP 8; anterior lung sounds are diminished throughout; ET and oral secretions are small/thick/creamy. GI: right nare NGT to LIS: dark brown/green output; hypoactive BS; last BM per report was on 07/31/20. : quiroz inserted on 08/04/20 for strict I/O: dark dawit/cloudy/sediment. Skin: blanchable redness to sacrum: optifoam applied; generalized scabbing and bruising. IV: left hand 20 g IID inserted on 08/01/20; right IJ TLC inserted on 08/04/20 running Propofol @ 50 and Versed @ 15. Patient has received x2 doses of Remdesivir per pharmacy orders. Pending ABG/CBC/BMP/Mag/DDimer/C-reactive protein/CXR in AM. Patient is COVID positive: all precautions and isolation steps are initiated. Will continue to round, reposition, and perform oral care prn.
--- NOTE | 2020-08-08 22:00 | NUR ---
Respiratory note: AT BEDSIDE IN FULL PPE DUE TO COVID PRECAUTIONS. MED NEB TX GIVEN VIA AEROGEN WITH OUT ADVERSE REACTION NOTED. PTS CURRENT TEMP 99.9F. NO VENT CHANGES MADE, WILL CONTINUE TO MONITOR.
[2020-08-09] VITALS (102 sets, daily range): BP systolic 92–153; BP diastolic 46–111
--- NOTE | 2020-08-09 00:33 | NUR ---
SVT: Patient had a 22-sec run of SVT with rate in the 180s. Rhythm then converted back to ST 100s-110s.
--- NOTE | 2020-08-09 01:32 | NUR ---
Respiratory note: VENT CHECK DONE FROM PTS ROOM DOOR DUE TO COVID PRECAUTIONS. PTS CURRENT TEMP 100.4F. NO VENT CHANGES MADE, WILL CONTINUE TO MONITOR.
[2020-08-09] MEDS: ACETAMINOPHEN 650 MG RECT SUPP PR PRN (01:42)
--- NOTE | 2020-08-09 01:42 | NUR ---
Temp 100.4 Rectal: Supp. Tylenol 650 mg given for rectal temp of 100.4 and cooling measures initiated.
--- NOTE | 2020-08-09 02:00 | NUR ---
Labs sent to laboratory department via [employer] system.
[2020-08-09] MEDS: MIDAZOLAM DRIP 50 mg/50mL 50 ML IV SCH ×6 (02:04→21:29)
[2020-08-09 02:30] LABS: BUN/Creatinine Ratio 35.6; Calcium 8.1 mg/dL (8.5-10.1); Magnesium 2.7 mg/dL (1.6-2.6)
[2020-08-09 03:00] LABS: Basophils # (auto) 0.1 10 ^3/uL (0-0.2); Basophils % (auto) 0.7 % (0.0-2.0); Eosinophils # (auto) 0 10 ^3/uL (0-0.8); Hematocrit 52.2 % (41.0-53.0); Hemoglobin 16.8 g/dL (13.5-17.5); Lymphocytes # (auto) 0.9 10 ^3/uL (0.4-5.4); Lymphocytes % (auto) 6.8 % (10.0-50.0); Mean Corpuscular Hemoglobin 30.9 pg (28.0-32.0); Mean Corpuscular Hgb Conc. 32.3 g/dL (32.0-36.0); Mean Corpuscular Volume 95.7 fL (80.0-100.0); Monocytes # (auto) 1.2 10 ^3/uL (0-1.3); Monocytes % (auto) 9.4 % (0.0-12.0); Neutrophils # (auto) 10.8 10 ^3/uL (1.6-8.6); Neutrophils % (auto) 83.1 % (37.0-80.0); Nucleated Red Blood Cells % 0.1 %; Platelet Count (auto) 309 10^3/uL (140-450); Red Blood Cells 5.45 10^6/uL (4.5-5.90); Red Cell Distribution Width 13.4 % (11.8-14.3); White Blood Cell 13.1 10^3/uL (4.4-10.8)
[2020-08-09] MEDS: PROPOFOL 100 ML IV SCH ×5 (03:08→23:40)
[2020-08-09] MEDS: hydrALAZINE HCL 20 MG/ML VL IV PRN (03:08)
--- NOTE | 2020-08-09 04:20 | NUR ---
Patient bathe/linen change Patient given complete CHG bath. Skin integrity assessed for any changes. Optifoam CDI on sacrum. Partial linens and gown changed. Patient repositioned for comfort.
--- NOTE | 2020-08-09 05:30 | NUR ---
Fever of 100.6 despite previous Tylenol and cooling measures. Cooling blanket placed under patient and ice bags replaced. Will continue Tylenol Q6H.
[2020-08-09] MEDS: ALBUTEROL SULF 2.5 MG/0.5ML(0.5%) NEB SOLN NEB SCH ×3 (06:33→22:18)
[2020-08-09] MEDS: BUDESONIDE (INHALATION) 0.5 MG/2 ML NEB NEB SCH ×2 (06:33→22:18)
[2020-08-09] MEDS: levoFLOXacin 500MG 100 ML IV SCH (09:52)
[2020-08-09] MEDS: DexAMETHasone SOD PHOS 10MG/1ML VIAL INJ IV SCH (09:52)
[2020-08-09] MEDS: PANTOPRAZOLE 40 MG/10 ML VIAL INJ IV SCH (09:53)
[2020-08-09] MEDS: ASPirin 325 MG TAB PO SCH (09:53)
[2020-08-09] MEDS: ZINC SULFATE 220mg CAP or TAB PO SCH (09:53)
[2020-08-09] MEDS: CHOLECALCIFEROL (VITD3) 2,000 UNIT CAP PO SCH (09:54)
[2020-08-09] MEDS: ASCORBIC ACID 500 MG TAB PO SCH ×2 (09:54→21:30)
[2020-08-09] MEDS: ENOXAPARIN SOD 100 MG/1 ML SYRINGE SC SCH ×2 (09:54→21:30)
--- NOTE | 2020-08-09 15:00 | NUR ---
Cooling Measures applied. Patient currently has temp of 100.2 , cooling measures in place.
--- NOTE | 2020-08-09 23:41 | NUR ---
IV removal IV on left hand DC'd with clean sterile technique, catheter fully intact. Pressure dressing applied to site. Patient tolerated well. Patient only has left femoral triple lumen catheter.
[2020-08-10] VITALS (98 sets, daily range): BP systolic 99–153; BP diastolic 70–112
[2020-08-10] MEDS: MIDAZOLAM DRIP 50 mg/50mL 50 ML IV SCH ×5 (02:30→22:30)
[2020-08-10 04:14] LABS: Basophils # (auto) 0 10 ^3/uL (0-0.2); Basophils % (auto) 0.2 % (0.0-2.0); Eosinophils # (auto) 0 10 ^3/uL (0-0.8); Eosinophils % (auto) 0.2 % (0.0-7.0); Hematocrit 51.8 % (41.0-53.0); Hemoglobin 17.1 g/dL (13.5-17.5); Lymphocytes # (auto) 0.9 10 ^3/uL (0.4-5.4); Lymphocytes % (auto) 7.7 % (10.0-50.0); Mean Corpuscular Hemoglobin 31.3 pg (28.0-32.0); Mean Corpuscular Hgb Conc. 33.1 g/dL (32.0-36.0); Mean Corpuscular Volume 94.6 fL (80.0-100.0); Monocytes # (auto) 1.1 10 ^3/uL (0-1.3); Monocytes % (auto) 9.4 % (0.0-12.0); Neutrophils # (auto) 9.9 10 ^3/uL (1.6-8.6); Neutrophils % (auto) 82.5 % (37.0-80.0); Platelet Count (auto) 331 10^3/uL (140-450); Red Blood Cells 5.48 10^6/uL (4.5-5.90)
[2020-08-10] MEDS: PROPOFOL 100 ML IV SCH ×4 (04:30→18:50)
[2020-08-10 04:32] LABS: BUN/Creatinine Ratio 47.3; Calcium 8.4 mg/dL (8.5-10.1); Magnesium 2.9 mg/dL (1.6-2.6); Potassium 3.9 mmol/L (3.5-5.1)
[2020-08-10] MEDS: BUDESONIDE (INHALATION) 0.5 MG/2 ML NEB NEB SCH ×2 (06:20→22:00)
[2020-08-10] MEDS: ALBUTEROL SULF 2.5 MG/0.5ML(0.5%) NEB SOLN NEB SCH ×3 (06:21→22:01)
--- NOTE | 2020-08-10 09:39 | NUR ---
Resumed care at 07, orders reviewed and ongoing assessments being done. Remains intubated and sedated and positive for COVID-19. In isolation per protocol. Upon arrival gagging and strong productive cough with thick light yellow secretions from mouth and also down EET. Prior shift initiated weaning of sedation for possible CPAP trial today if appropriate. Not opening eyes or following any direction at this time.
[2020-08-10] MEDS: ASCORBIC ACID 500 MG TAB PO SCH ×2 (10:29→22:16)
[2020-08-10] MEDS: DexAMETHasone SOD PHOS 10MG/1ML VIAL INJ IV SCH (10:29)
[2020-08-10] MEDS: CHOLECALCIFEROL (VITD3) 2,000 UNIT CAP PO SCH (10:29)
[2020-08-10] MEDS: ZINC SULFATE 220mg CAP or TAB PO SCH (10:29)
[2020-08-10] MEDS: PANTOPRAZOLE 40 MG/10 ML VIAL INJ IV SCH (10:29)
[2020-08-10] MEDS: ENOXAPARIN SOD 100 MG/1 ML SYRINGE SC SCH ×2 (10:29→22:17)
[2020-08-10] MEDS: ASPirin 325 MG TAB PO SCH (10:29)
[2020-08-10] MEDS ORDERED: SODIUM CHLORIDE 0.9 % NEB SOLN 3ML NEB ONE (13:49)
--- NOTE | 2020-08-10 15:06 | NUR ---
Nutrition Followup Note Pt wt 96.9kg Pt is positive for COVID. Pt curtain was drawn when rounded this morning. Pt is intubated and sedated in ICU. Pt is NPO with scheduled TF Jevity 1.2 @ 65 ml/hr, but not initiated yet. Est energy needs 5621-6946 kcal (14-18 kcal/kg BW 113.4kg) Est protein needs 75-98g (1-1.3g/kg IBW 75kg) Will monitor and reassess prn. Labs: BUN 44H, GLUC 133H, Alb 2.6L, Ca 8.4H BM: Pt with no BM noted per RN note Skin: BS 10 high risk, full details in day care director note PES: Obesity r/t caloric intake excess of needs aeb pt with a BMI of 35.9kg/m2 Inadequate oral intake r/t current medical condition aeb pt NPO, intubated and sedated Comments: 1) Continue to monitor npo status, labs, skin 2) refer pt to OPD on DC 3)Continue current plan of care Expected Outcomes/Goals: 1) Consider starting pt on alternate nutrition if pt is NPO >48hrs 2) Consider Jevity 1.2 at a goal rate of 65 ml/hr 3) Consider TPN if TF is not medically feasible 4) advance diet as medically feasible 5) f/u 2-3 days
--- NOTE | 2020-08-10 16:09 | NUR ---
In the room from [id number]. Weaned off Diprivan and on Precedex. Not following any commands, with persistent gaging on ETT and coughing. Unable to calm and not able to participate with weaning trial. Continuing to suction large amount of thick yellow secretions. Had to restart Diprivan. Rectal temperature spiked to 100.8. Utilizing cooling blanket, ice packs and cool compress. Rectal temperature now 98.8.
--- NOTE | 2020-08-10 19:46 | NUR ---
Waldo Taylor was a in patient in room 251 A. She was discharged today and all her husbands belongings were taken to her prior to discharge. Items machine operator picker by Lizzie HURST.
--- NOTE | 2020-08-10 22:00 | NUR ---
CARES FULL BED LINEN CHANGE, CHG BED BATH, APPLIED OPTIFOAM TO SACRUM, PATIENT TOLERATED CARES WELL.
[2020-08-11] VITALS (70 sets, daily range): BP systolic 105–188; BP diastolic 76–138
[2020-08-11] MEDS: MIDAZOLAM DRIP 50 mg/50mL 50 ML IV SCH ×6 (03:30→22:39)
[2020-08-11] MEDS: PROPOFOL 100 ML IV SCH ×6 (03:43→22:39)
[2020-08-11 04:21] LABS: Basophils # (auto) 0.1 10 ^3/uL (0-0.2); Basophils % (auto) 0.6 % (0.0-2.0); Eosinophils # (auto) 0 10 ^3/uL (0-0.8); Eosinophils % (auto) 0.3 % (0.0-7.0); Hematocrit 50.8 % (41.0-53.0); Hemoglobin 16.6 g/dL (13.5-17.5); Lymphocytes % (auto) 7.5 % (10.0-50.0); Mean Corpuscular Hemoglobin 31.2 pg (28.0-32.0); Mean Corpuscular Hgb Conc. 32.8 g/dL (32.0-36.0); Mean Corpuscular Volume 95.2 fL (80.0-100.0); Monocytes # (auto) 1.1 10 ^3/uL (0-1.3); Monocytes % (auto) 8.6 % (0.0-12.0); Neutrophils # (auto) 10.7 10 ^3/uL (1.6-8.6); Platelet Count (auto) 296 10^3/uL (140-450); Red Blood Cells 5.33 10^6/uL (4.5-5.90); Red Cell Distribution Width 13.2 % (11.8-14.3); White Blood Cell 12.9 10^3/uL (4.4-10.8)
[2020-08-11 05:00] LABS: BUN/Creatinine Ratio 55.3; Calcium 8.6 mg/dL (8.5-10.1); Magnesium 3.1 mg/dL (1.6-2.6); Potassium 3.8 mmol/L (3.5-5.1)
--- NOTE | 2020-08-11 06:46 | NUR ---
PROGRESS NOTE PATIENT STILL REMAINS ON COOLING/WARMING BLANKET, TEMPERATURE AUTO REGULATED. PATIENT IS TRYING TO OPEN HIS EYES, EYES LIDS ARE HEAVY, ABLE TO FOLLOW COMMANDS, SQUEEZES WITH BOTH HANDS, LEFT HAND NO WEAKNESS, RIGHT HAND MODERATE WEAKNESS. MINIMUM MOVEMENT WITH RIGHT LEG, DID NOT NOTE ANY MOVEMENT ON HIS LEFT LEG. ABLE TO NOD HIS HEAD YES. PATIENT WAS ORIENTED TO SURROUNDING, SITUATION AND POC, PATIENT REMAIN CALM AT THIS MOMENT.
[2020-08-11] MEDS: ALBUTEROL SULF 2.5 MG/0.5ML(0.5%) NEB SOLN NEB SCH ×2 (07:26→13:11)
[2020-08-11] MEDS ORDERED: EPINEPHrine HCL 0.5 ML NEB ONE ×2 (10:05→10:09)
[2020-08-11] MEDS: ENOXAPARIN SOD 100 MG/1 ML SYRINGE SC SCH ×2 (10:15→20:20)
[2020-08-11] MEDS: DexAMETHasone SOD PHOS 10MG/1ML VIAL INJ IV SCH (10:15)
[2020-08-11] MEDS: ASCORBIC ACID 500 MG TAB PO SCH ×2 (10:15→20:20)
[2020-08-11] MEDS: CHOLECALCIFEROL (VITD3) 2,000 UNIT CAP PO SCH (10:15)
[2020-08-11] MEDS: PANTOPRAZOLE 40 MG/10 ML VIAL INJ IV SCH (10:15)
[2020-08-11] MEDS: ASPirin 325 MG TAB PO SCH (10:15)
[2020-08-11] MEDS: ZINC SULFATE 220mg CAP or TAB PO SCH (10:15)
--- NOTE | 2020-08-11 11:02 | NUR ---
Resumed care at 0715, orders reviewed and ongoing assessments being done. In isolation and being treated for Covid-19. Upon arrival, intubated and sedated. Plan for the day, CPAP trial. Julieta RAMIREZ initiated CPAP at 0720. Diprivan and Precedex initially still infusing. Diprivan was weaned off at 0900 and Precedex off at 10 am. First part of the morning very sluggish but able to follow simple direction, not able to keep eyes open. Remains sleepy but continues to follow simple directions. CPAP trial continued. Julieta RAMIREZ obtained all parameters and ABG done and results were forward to Dr. Yuan. Per Dr. Yuan, okay to extubate. Procedure explained and reoriented to place, time and situation. Requires frequent reassurance. Julieta RAMIREZ extubated at 1027. Oral care done and placed on BIPAP per Dr. Yuan. Initially Fio2 100%, decreased to 40% at 11am. Awakening more and starting to move about in bed.
[2020-08-11] MEDS: BUDESONIDE (INHALATION) 0.5 MG/2 ML NEB NEB SCH (13:11)
[2020-08-11] MEDS: ALPRAZolam 0.25 MG TAB PO PRN (16:05)
--- NOTE | 2020-08-11 17:10 | NUR ---
Dr. Estrada in at 1140 and rounded. Discussed condition and plan of care. Reviewed home medications. Made him aware of elevation in BP since sedation weaned off and being more alert. Orders obtained for HTN medications. Is full awake now and moving all extremities. To weak to attempt to climb out of bed, but moving hips side to side. Starting to shout and saying "let me out" "help". In room from [address], time and situation. Continues to follow simple direction but very anxious, disoriented and restless. Reassurance given. "I just want to go home" he stated. Assisted with repositioning, oral care done. Medicated with xanax 0.5mg via NGT.
[2020-08-11] MEDS: buPROPion HCL 75 MG TAB PO SCH (18:30)
--- NOTE | 2020-08-11 18:49 | NUR ---
In room 1805 to 1830. Assisted with repositioning and fed him a jello and one juice box. Able to swallow scheduled Wellbutrin pill without difficulty. Continue current plan of care.
[2020-08-11] MEDS: cloNIDine HCL 0.1 MG TAB PO SCH (20:19)
[2020-08-11] MEDS: METOPROLOL TARTRATE 50 MG TAB PO SCH (20:19)
[2020-08-11] MEDS: HYDROcodone-ACET 5/325MG TAB PO PRN (20:21)
[2020-08-11] MEDS ORDERED: ALBUTEROL SULF 2.5 MG/0.5ML(0.5%) NEB SOLN NEB PRN (20:45)
[2020-08-11] MEDS ORDERED: BUDESONIDE (INHALATION) 0.5 MG/2 ML NEB NEB PRN (20:45)
--- NOTE | 2020-08-11 20:51 | NUR ---
PT ASSESSED FOR PRN MED NEB TX. SPO2 96% ON 8L OXYMIZER, HR 113, RR 21. NO RESPIRATORY DISTRESS NOTED, WILL CONTINUE TO MONITOR.
--- NOTE | 2020-08-11 21:32 | NUR ---
PATIENT REQUESTING BED TALAMANTES PLACED ON BED TALAMANTES, PATIENT DID NOT HAVE BOWEL MOVEMENT AFTER 14 MIN, TOOK HIM OFF BED TALAMANTES. TOLERATED TURNS WELL. PATIENT STATED HE WILL TRY AGAIN LATER.
--- NOTE | 2020-08-11 22:00 | NUR ---
PATIENT REQUESTING TO TALK TO HIS CALLED HIS BENJAMIN TWO TIMES, NO ANSWER. PATIENT STATES, THAT HE WANTS TO GO HOME TOMORROW AND THAT HE MISSES HIS . PROVIDED THERAPEUTIC LISTENING. EDUCATED ON HIS STATUS AND POC.
[2020-08-11] MEDS: hydrALAZINE HCL 20 MG/ML VL IV PRN (22:48)
--- NOTE | 2020-08-11 23:02 | NUR ---
PATIENT WAS ASKING WHERE HIS RINGS WENT EDUCATED PATIENT THAT ALL OF HIS BELONGINGS WERE SENT WITH HIS HOME.
--- NOTE | 2020-08-11 23:50 | NUR ---
PAGED HOSPITALIST PATIENT REPORTS CONSTIPATION, ASKING FOR LAXATIVE RECEIVED NEW ORDERS
[2020-08-12] VITALS (33 sets, daily range): BP systolic 124–173; BP diastolic 87–132
--- NOTE | 2020-08-12 | NUR ---
BOWEL MOVEMENT PATIENT HAD LIQUID BROWN BOWEL MOVEMENT. PATIENT RECEIVED PARTIAL BED BATH AND FULL BED LINEN CHANGE. PATIENT TOLERATED BED LINEN CHANGE WELL.
[2020-08-12] MEDS: ALPRAZolam 0.25 MG TAB PO PRN (01:00)
[2020-08-12 04:58] LABS: INR 1.11 (0.9-1.15); Partial Thromboplastin Time 27.9 sec (23.0-31.2)
[2020-08-12] MEDS: PROPOFOL 100 ML IV SCH ×3 (05:42→15:30)
[2020-08-12 06:01] LABS: Basophils # (auto) 0 10 ^3/uL (0-0.2); Basophils % (auto) 0.2 % (0.0-2.0); Eosinophils # (auto) 0.1 10 ^3/uL (0-0.8); Eosinophils % (auto) 0.4 % (0.0-7.0); Hematocrit 52.2 % (41.0-53.0); Hemoglobin 16.8 g/dL (13.5-17.5); Lymphocytes # (auto) 0.9 10 ^3/uL (0.4-5.4); Mean Corpuscular Hemoglobin 30.8 pg (28.0-32.0); Mean Corpuscular Hgb Conc. 32.2 g/dL (32.0-36.0); Mean Corpuscular Volume 95.6 fL (80.0-100.0); Monocytes % (auto) 6.7 % (0.0-12.0); Neutrophils # (auto) 12.9 10 ^3/uL (1.6-8.6); Neutrophils % (auto) 86.7 % (37.0-80.0); Nucleated Red Blood Cells % 0.1 %; Platelet Count (auto) 288 10^3/uL (140-450); Red Blood Cells 5.46 10^6/uL (4.5-5.90); Red Cell Distribution Width 13.3 % (11.8-14.3); White Blood Cell 14.9 10^3/uL (4.4-10.8)
[2020-08-12] MEDS ORDERED: METOPROLOL TARTRATE 1MG/1ML-5ML VIAL IV ONE ×4 (06:15→06:45)
--- NOTE | 2020-08-12 06:18 | NUR ---
PATIENTS HR ABOVE 190
--- NOTE | 2020-08-12 06:20 | NUR ---
[facility] RECEIVED NEW ORDERS FROM NICOLAS
[2020-08-12 06:29] LABS: BUN/Creatinine Ratio 40.9; Calcium 8.8 mg/dL (8.5-10.1); Potassium 3.3 mmol/L (3.5-5.1)
[2020-08-12] MEDS ORDERED: POTASSIUM CHL 20MEQ/100ML 200 ML IV ONE (06:44)
[2020-08-12] MEDS: POTASSIUM CHL 20MEQ/100ML 100 ML IV SCH ×2 (06:45→11:28)
[2020-08-12] MEDS: buPROPion HCL 75 MG TAB PO SCH ×2 (07:02→18:09)
--- NOTE | 2020-08-12 07:30 | NUR ---
ANXIETY/ AGGRESSIVE DURING REPORT PATIENT YELLING OUT AND ATTEMPTING TO GET OUT OF BED BUT UNSUCCESSFUL DUE TO EXTREME WEAKNESS. ATTEMPTING CALMING TECHNIQUES, PATIENT THEN BEGAN TO CURSE AT NURSES WHILE ATTEMPTING TO HELP. PATIENT ALERT AND ORIENTED X3. PATIENT ANXIOUS AND DEMANDING TO GO HOME. RE- ORIENTED PATIENT. EXPLAINED TO PATIENT NEED FOR MD EVALUATION. PATIENT AGREES TO WAIT. ALL COMFORT MEASURES PROVIDED TO ALLEVIATE FRUSTRATION.
--- NOTE | 2020-08-12 07:30 | NUR ---
Respiratory note: PT ASSESSED FROM OUTSIDE OF ROOM DUE TO PT BEING EXTREMELY AGITATED, AND AGGRESSIVE. RN AT BEDSIDE BS ARE CLEAR/DIMINISHED BILATERALLY. RN TITRATED FIO2 TO 4L OXYMIZER, FROM A 6LOXYMIZER. PT TOLERATED CHANGE WELL. SPO2 95%, HR 115, RR 24, BP 148/100. PRN MEDNEB TX NOT INDICATED AT THIS TIME. WILL CONTINUE TO MONITOR PT. CHARTING COMPLETE FROM OUTSIDE OF PT ROOM PER COVID-19 PRECAUTIONS/PROTOCOL.
[2020-08-12] MEDS: MIDAZOLAM DRIP 50 mg/50mL 50 ML IV SCH ×3 (09:30→15:51)
[2020-08-12] MEDS: DOCUSATE ORAL LIQUID 100 MG/10 ML UD GT SCH ×2 (10:00→21:16)
--- NOTE | 2020-08-12 10:00 | NUR ---
Patient again having another episode of agitation, attempting to get out of bed, yelling out he wants quiroz catheter out. Patient reoriented. Deescalated situation. Patient again reoriented. Patient alert to situation and has agreed to wait for md to round. Family called and aware to bring patients cellphone as requesting. Patient able to swallow pills without difficulty. Will continue to monitor.
[2020-08-12] MEDS: PANTOPRAZOLE 40 MG/10 ML VIAL INJ IV SCH (11:29)
[2020-08-12] MEDS: ASPirin 325 MG TAB PO SCH (11:29)
[2020-08-12] MEDS: ASCORBIC ACID 500 MG TAB PO SCH ×2 (11:29→21:18)
[2020-08-12] MEDS: ENOXAPARIN SOD 100 MG/1 ML SYRINGE SC SCH ×2 (11:30→21:18)
[2020-08-12] MEDS: CHOLECALCIFEROL (VITD3) 2,000 UNIT CAP PO SCH (11:30)
[2020-08-12] MEDS: cloNIDine HCL 0.1 MG TAB PO SCH ×2 (11:31→21:18)
[2020-08-12] MEDS: METOPROLOL TARTRATE 50 MG TAB PO SCH ×2 (11:32→21:17)
--- NOTE | 2020-08-12 12:00 | NUR ---
NUTRITION DIET ADVANCED PATIENT IS ABLE TO SWALLOW CLEAR LIQUIDS AND WHOLE PILLS WELL. CARDIAC DIET PROVIDED. MAX ASSISTANCE PROVIDED DUE TO BILATERAL UPPER EXT. WEAKNESS. TOTAL OF 75% INTAKE TOLERATED.
--- NOTE | 2020-08-12 13:15 | NUR ---
WOUND CARE NOTE: Wound care in to see patient for skin integrity monitoring. Patient extubated yesterday. Patient continue resting in ICU low air loss bed in Rm. 102. Patient remain on airborne precautions due to CoVid. Patient is awake,alert and able to verbalize needs and follow direction. Patient is in no stated pain at this time. He's able to assist in turning and repositioning and his Juan score is 13. Skin assessment done with the assistance of patient's nurse, ARIS French. Patient's distal medial sacrum at intragluteal fold noted with 2x1cm open partial thickness skin tear appears to be moisture related, tj wound is pink/red blanchable. ARIS Santos took picture of patient's wound for reference. Cleansed sacral wound with mild soap and water,patted dry,applied Z Guard cream and covered wound with Opti foam gentle dressing. Patient tolerated well. Repositioned for comfort facing his Lt side,redistributed pressure points with pillows. ARIS French at bedside. RECOMMENDATION: Continuation of all wound care orders MD prescribed, continue with skin/wound plan of care,continue monitoring by wound care while Juan score is <18. Addendum: 08/12/20 at 1851 by Arelis Mendez RN Amended: Links added.
--- NOTE | 2020-08-12 13:30 | NUR ---
Family updated on pt status Family of SUSANNA REDDY updated on patient's status and condition. All questions and concerns addressed. verbalized understanding.
--- NOTE | 2020-08-12 14:00 | NUR ---
Quiroz catheter dc'd Order to discontinue quiroz catheter. Quiroz dc'd with clean technique following deflation of balloon. Patient tolerated well with no complaints of pain. Continue care.
[2020-08-12] MEDS: hydrALAZINE HCL 20 MG/ML VL IV PRN (15:00)
--- NOTE | 2020-08-12 15:04 | NUR ---
Nutrition Followup Note Pt wt 96.6kg Pt is positive for COVID. Pt was awake with RN attending when rounded this morning. Pt is with an oxymizer and per RN is combative. Pt is with a Clear Liquid diet, appetite is good aeb 100% PO intake per RN doc. Est energy needs 2786-8485 kcal (14-18 kcal/kg BW 113.4kg) Est protein needs 75-98g (1-1.3g/kg IBW 75kg) Will monitor and reassess prn. Labs: BUN 36H, GLUC 170H, Alb 2.6L BM: Pt with 1 BM today per RN note Skin: BS 13 mod risk, full details in youth career specialist note PES: 1) Obesity r/t caloric intake excess of needs aeb pt with a BMI of 35.9kg/m2 2) Inadequate oral intake r/t current medical condition aeb pt NPO, intubated and sedated Comments: Will continue to monitor PO status, skin status, pertinent labs and weight trends. Will f/u in 2-3 days 1) Consider starting pt on alternate nutrition if pt is NPO >48hrs (N/A) 2) Consider Jevity 1.2 at a goal rate of 65 ml/hr (N/A) 3) Consider TPN if TF is not medically feasible (N/A) 4) Advance diet as medically feasible ( In process) 5) Refer pt to OPD on DC 6) Continue current plan of care Expected Outcomes/Goals: 1)
--- NOTE | 2020-08-12 16:45 | NUR ---
Family updated on pt status Family of SUSANNA REDDY updated on patient's status and condition. All questions and concerns addressed. Father verbalized understanding.
--- NOTE | 2020-08-12 17:00 | NUR ---
Audit Specialist Dr. Yuan updated on patients status. See md orders/notes.
--- NOTE | 2020-08-12 17:01 | NUR ---
Physical therapy Vince at bedside to perform evaluation. Patient sitting up in chair. See PT notes. Pox 88-90% with 6L Oxymizer. Addendum: 08/12/20 at 1841 by Gillian Ceja RN POX DECREASED TO 83-84%. OXYMIZER INCREASED TO 10L/MIN.
--- NOTE | 2020-08-12 17:26 | NUR ---
Assessment Regarding social service consult for SNF vs home health. Per ELIZABETH Garza Patient was extubated on 08/11/20 and is not stabilize to discharge at this time. Will follow up on Saturday.
--- NOTE | 2020-08-12 17:45 | NUR ---
Incentive spirometer Patient instructed on how to properly use I.S. Patient able to reach 2500ml during inspiration. Will continue to encourage.
--- NOTE | 2020-08-12 18:25 | NUR ---
Activity Patient assisted back to bed by physical therapy as patient was demanding he wanted to get back. Patient almost became too impatient and tried to get into bed independently. Patient needing frequent reinforcement to wait for P.T.
--- NOTE | 2020-08-12 18:41 | NUR ---
AWAITING DINNER TRAY.
--- NOTE | 2020-08-12 19:08 | NUR ---
REPORT PATIENT RESTING COMFORTABLY IN BED. HR ST 112 POX 98% ON 10/ OXYMIZER. RR 25. NOC SHIFT TO RESUME CARE. DINNER TRAY PENDING.
--- NOTE | 2020-08-12 19:33 | NUR ---
PT RECEIVED ON 10 L VIA OXYMIZER AND IS CURRENTLY STABLE, NO SOB OR RESPIRATORY DISTRESS NOTED. SPO2 93%, RR 22 AND HR 114. NO INDICATION FOR PRN TX NOTED AT THIS TIME. WILL CONTINUE TO MONITOR.
--- NOTE | 2020-08-12 19:40 | NUR ---
OPENING NOTE REPORT RECEIVED FROM SAADIA HURST. THIS IS A COVID POSITIVE PATIENT ON RESPIRATORY ISOLATION. PATIENT IS AWAKE, A/OX4, YELLING OUT AND RESTLESS. PATIENT CONNECTED TO CONTINUOUS BEDSIDE MONITORS. SINUS TACHY ON THE MONITOR. 10L OXYMIZER IN PLACE SATS >95% WHEN PATIENT IS NOT YELLING OUT. WARD WAS TAKEN OUT TODAY, PATIENT IS ABLE TO VOID IN THE URINAL. NOTED CLOUDY DARK ALESHA URINE IN URINAL. SMALL MEDIAL SACRAL SKIN TEAR. Z GUARD AND OPTIFOAM TO SACRUM. RIGHT TRIPLE LUMEN IJ IN PLACE, SALINE LOCKED. PENDING BED IN TELE UNIT, PATIENT AWARE OF THAT.
[2020-08-12] MEDS: HALOPERIDOL 1 MG TAB PO SCH (21:17)
--- NOTE | 2020-08-12 23:15 | NUR ---
LOW SATS PATIENT YELLING AT THE TV, SPO2 IN HIGH 80'S. INCREASED OXYMIZER TO 12L. WILL CONTINUE TO MONITOR.
[2020-08-13] VITALS (20 sets, daily range): BP systolic 98–175; BP diastolic 58–126
[2020-08-13] MEDS: hydrALAZINE HCL 20 MG/ML VL IV PRN (03:27)
--- NOTE | 2020-08-13 04:15 | NUR ---
AM CARE PATIENT GIVEN COMPLETE LINEN CHANGE. PATIENT BECAME AGGRESSIVE DURING LINEN CHANGE AND BEGAN YELLING PROFANITY. PATIENT YELLING, "FUCK, HURRY UP, I'M TIRED". PATIENT ATTEMPTED TO SWING LEGS OVER RAILS TO GET OUT OF BED. EDUCATED PATIENT THAT HE IS NOT STRONG ENOUGH TO GET OUT OF BED AT THIS TIME. PATIENT STILL YELLING PROFANITY. PATIENT REFUSED CHG WIPES AT THIS TIME AND STATES, "I'M GOING HOME TODAY ANYWAY. I DON'T NEED THAT". COMPLETE LINEN CHANGE DONE. PATIENT REFUSED CHG WIPES AND GOWN CHANGE.
[2020-08-13 05:24] LABS: Potassium 3.9 mmol/L (3.5-5.1)
[2020-08-13 05:32] LABS: BUN/Creatinine Ratio 35.4; Calcium 8.6 mg/dL (8.5-10.1); Magnesium 2.1 mg/dL (1.6-2.6)
--- NOTE | 2020-08-13 06:45 | NUR ---
INCONTINENT PATIENT YELLING PROFANITY, HEART RATE IN 130'S. AFTER THIS RN DONNED PPE AND ENTERED PATIENT ROOM, PATIENT EXPRESSED THAT HE COULDN'T REACH THE URINAL AND URINATED IN BED. PATIENT GIVEN PARTIAL LINEN CHANGE, ABLE TO ASSIST WITH TURNING.
[2020-08-13] MEDS: buPROPion HCL 75 MG TAB PO SCH ×2 (07:03→21:14)
--- NOTE | 2020-08-13 07:15 | NUR ---
CLOSING PATIENT RESTLESS IN BED, HEART RATE IN 130'S. PATIENT YELLING OUT PROFANITIES. PATIENT REMAINS ON 12L OXYMIZER. REPORT ENDORSED TO DAYSNDFT ARIS SCHWARTZ.
--- NOTE | 2020-08-13 07:35 | NUR ---
PT GOT OUT OF BED WITHOUT ASSISTANCE, PT WAS YELLING, PROFANITIES, TOOK OFF HIS OXYMIZER MASK AND EKG, MONITORING DEVICES, PT WAS DIAPHORETIC, SKIN WAS WET IN SWEAT, SKIN COLOR WAS CYANOTIC HR IN THE 140'S WHEN PLACED BACK ON MONITOR AND SPO2 BACK ON THE 84 % RANGE WHEN BACK ON OXYMIZER AT 12 L/MIN PT WAS SITTING ON A CHAIR AND WAS C/O SAYING THAT " I WANT TO GO HOME, MY DOCTOR TOLD ME I CAN GO HOME TODAY, I DON'T WANT TO BE HERE ANY MORE". PT WAS FIGHTING NOT TO BE PLACED BACK IN MONITOR DEVICES. PT HAD TAKEN OFF HIS CENTRAL LINE DRESSING, CENTRAL LINE WAS STILL IN PLACE. I RE- ORIENTED PT TO PLACE AND TIME AND EDUCATED ON POC AND TOLD HIM HE MAY REMAIN ON CHAIR BUT HE NEEDS TO KEEP MONITORING DEVICES ON UNTIL MD TO SEE HIM AND DETERMINE IF HE WILL BE DISCHARGED HOME TODAY. PT CALMED DOWN AND ALLOWED FOR MONITORING DEVICES TO REMAIN ON.
--- NOTE | 2020-08-13 08:00 | NUR ---
AM ASSESSMENT COMPLETED. ST, TACHYPNEIC, RR MID 30'S TO LOW 40'S , HAS A FREQUENT MOIST COUGH, LS DIMINISHED THROUGH OUT. AFEBRILE. CYANOTIC IN LOWER EXTREMITIES, INCONTINENT OF URINE AND BM. SKIN IS INTACT. PT NEEDS ASSISTANCE WITH EATING AND AMBULATION. PT NEEDS A SITTER. PT IS IN ICU WAITING FOR A TELE BED.
[2020-08-13] MEDS: HALOPERIDOL LACTATE 5 MG/ML INJ VIAL IM PRN ×2 (08:36→20:08)
[2020-08-13] MEDS: ENOXAPARIN SOD 100 MG/1 ML SYRINGE SC SCH ×2 (09:51→21:58)
[2020-08-13] MEDS: HALOPERIDOL 1 MG TAB PO SCH ×2 (09:51→21:59)
[2020-08-13] MEDS: DOCUSATE ORAL LIQUID 100 MG/10 ML UD GT SCH ×2 (09:54→21:58)
[2020-08-13] MEDS: PANTOPRAZOLE 40 MG/10 ML VIAL INJ IV SCH (09:54)
[2020-08-13] MEDS: ASPirin 325 MG TAB PO SCH (09:55)
[2020-08-13] MEDS: cloNIDine HCL 0.1 MG TAB PO SCH ×2 (09:55→22:01)
[2020-08-13] MEDS: METOPROLOL TARTRATE 50 MG TAB PO SCH ×2 (09:56→22:02)
[2020-08-13] MEDS: ASCORBIC ACID 500 MG TAB PO SCH ×2 (09:56→21:59)
[2020-08-13] MEDS: CHOLECALCIFEROL (VITD3) 2,000 UNIT CAP PO SCH (09:56)
--- NOTE | 2020-08-13 11:49 | NUR ---
DR. TRONCOSO ROUNDED ON PT. I UPDATED HIM ON PT'S CONDITION. I TOLD HIM PT WAS FINALLY RESTING AFTER A VERY AGITATED AND AGGRESSIVE MORNING TOWARD ALL STAFF. NO NEW ORDERS RECEIVED. AWARE THAT PT HAD TO BE MEDICATED WITH HALOPERIDOL BOTH IM AND PO THIS AM RX, ON PRN ONE SCHEDULED.
--- NOTE | 2020-08-13 12:00 | NUR ---
THERMOREGULATION PT HAS A TEMP OF 101.3 ICE PCK APPLIED TO BOTH ARM PITS, BOTH GROINS AND BEHIND PT'S NECK.
--- NOTE | 2020-08-13 13:30 | NUR ---
THERMOREGULATION/ REASSESSMENT TEMP. DECREASED TO 99.3 ORAL.
--- NOTE | 2020-08-13 13:30 | NUR ---
FIELD APPLICATION ENGINEER ROUNDING DR. GARCIA ROUNDING, NO NEW ORDERS RECEIVED.
--- NOTE | 2020-08-13 14:30 | NUR ---
PT WAS C/O FEELING HUNGRY WHILE FEEDING HIM HE VOIDED IN THE URINAL ONCE AND ALSO C/O OF ALREADY HAVING HAD AN INCONTINENCE OF BM. COMPLETE BED BATH GIVEN. ALL LINEN CHANGE. REPOSITIONED FOR COMFORT. PT C/O DISCOMFORT WHILE ASSISTING TO TURN FROM SIDE TO SIDE, HE GETS SHORT OF BREATH AND STARTS COUGHING UP. SPO2 DROPS TO MID 80'S PT DOES GET DIAPHORETIC BUT EASILY RECOVERS ONCE HIS HEAD IS BACK UP. PT IS MORE AGGRESSIVE WHEN HE HAS TO ASSIST WITH ADL'S AND LESS COMPLIANT. GETS TACHYPNEIC AND WORKED UP. HE IS CONSTANTLY WANTING TO DRINK WATER, MILK AND APPLE JUICE, HIS APPETITE IS INCREASING. HIS URINE STILL REMAINS A DARK ALESHA COLOR.
--- NOTE | 2020-08-13 17:48 | NUR ---
THERMOREGULATION TEMP 100.0 PO ICE PACK COOLING MEASURES IMPLEMENTED. APPLIED ICE PACKS TOP BOTH ARM PITS, BOTH GROINS AND BEHIND PT'S HEAD. PT VOIDED AND , PARTIALLY MISSED THE URINAL, PT HAD TO HAVE A PARTIAL BATH AND A GOWN CHANGED BY ARIS JOHNSON. PT REQUESTING MORE APPLE JUICES WITH ICE.
--- NOTE | 2020-08-13 18:14 | NUR ---
Respiratory note: PT IN NO RESPIRATORY DISTRESS, PRN MED NEB TX'S NOT INDICATED. PT REMAINS NON-COMPLIANT WITH WEAR O2 DEVICES. PT IN NO RESPIRATORY DISTRESS, WILL CONTINUE TO MONITOR.
[2020-08-13] MEDS: ALPRAZolam 0.25 MG TAB PO PRN (20:09)
[2020-08-14] VITALS (7 sets, daily range): BP systolic 118–168; BP diastolic 59–99
--- NOTE | 2020-08-14 03:14 | NUR ---
Patient arrived to unit Patient arrived to unit after SBAR received. Patient is asleep, awakens to voice. No signs or symptoms of distress noted. Sitter at bedside. Will continue to monitor.
[2020-08-14] MEDS: buPROPion HCL 75 MG TAB PO SCH ×2 (06:38→18:47)
[2020-08-14] MEDS: guaiFENesin-DM 100/10mg/5ml SYR PO PRN ×2 (06:48→19:54)
--- NOTE | 2020-08-14 07:15 | NUR ---
Opening Shift Note Assumed care of patient, awake and alert bed is locked and in lowest position bed rails up x2 , call light is with in reach , sitter at bedside. No S/S of distress/SOB or pain. Instructed on POC and to call for assistance PRN, will continue to monitor for changes Q1hr and PRN.
[2020-08-14] MEDS: DOCUSATE ORAL LIQUID 100 MG/10 ML UD GT SCH ×2 (10:00→21:27)
[2020-08-14] MEDS: PANTOPRAZOLE 40 MG/10 ML VIAL INJ IV SCH (10:11)
[2020-08-14] MEDS: ASPirin 325 MG TAB PO SCH (10:12)
[2020-08-14] MEDS: cloNIDine HCL 0.1 MG TAB PO SCH ×2 (10:13→21:26)
[2020-08-14] MEDS: ASCORBIC ACID 500 MG TAB PO SCH ×2 (10:20→21:25)
[2020-08-14] MEDS: CHOLECALCIFEROL (VITD3) 2,000 UNIT CAP PO SCH (10:20)
[2020-08-14] MEDS: METOPROLOL TARTRATE 50 MG TAB PO SCH ×2 (10:20→21:26)
[2020-08-14] MEDS: ENOXAPARIN SOD 100 MG/1 ML SYRINGE SC SCH (10:20)
[2020-08-14] MEDS ORDERED: ENOXAPARIN SOD 60 MG/0.6 ML SYRINGE SC ONE (10:45)
--- NOTE | 2020-08-14 12:46 | NUR ---
Nutrition Followup Note Wt: 95.9 kg Pt is positive for COVID in isolation. per RN pt with no disrtess noted. pt is currently on cardiac diet with adequate PO of 75% x 4 per RN doc Est energy needs 9428-2680 kcal (14-18 kcal/kg BW 113.4kg), Est protein needs 75-98g (1-1.3g/kg IBW 75kg). Will monitor and reassess prn. Labs: BUN 28 H G;U 136 H BM: Pt with 1 BM today per RN note Skin: BS 13 mod risk, full details in technical healthcare consultant note PES: 1) Obesity r/t caloric intake excess of needs aeb pt with a BMI of 35.9kg/m2 2) Inadequate oral intake r/t current medical condition aeb pt NPO, intubated and sedated Comments: Will continue to monitor PO status, skin status, pertinent labs and weight trends. Will f/u in 3-5 days Rec: 1) Refer pt to [facility] on DC. 2) Continue current plan of care
[2020-08-14] MEDS: HALOPERIDOL 1 MG TAB PO SCH ×2 (13:35→21:26)
--- NOTE | 2020-08-14 18:54 | NUR ---
LEFT A MESSAGE WITH DR TRONCOSO ASKING ABOUT MEDICATION FOR MRSA
--- NOTE | 2020-08-14 19:48 | NUR ---
Opening Shift Note Received report and assumed care of patient. Patient is awake and alert. No signs or symptoms of distress noted. Instructed patient on plan of care and to call for assistance as needed. Sitter at bedside. Will continue to monitor.
[2020-08-14] MEDS: ENOXAPARIN SOD 60 MG/0.6 ML SYRINGE SC SCH (21:26)
[2020-08-14] MEDS ORDERED: ACETAMINOPHEN 325 MG TAB PO PRN (23:15)
[2020-08-15] MEDS: guaiFENesin-DM 100/10mg/5ml SYR PO PRN ×2 (01:07→07:00)
[2020-08-15] MEDS ORDERED: ALPRAZolam 0.5 MG TAB PO ONE (02:00)
--- NOTE | 2020-08-15 02:00 | NUR ---
Paged RT/Dr. Estrada Paged RT regarding patient's oxygen saturation fluctuating in 80s to low 90s occasionally dropping to the 70s despite being on 10L via nasal cannula and 15L nonrebreather mask. Increased work of breathing noted. Patient also reports feeling anxious. Paged Dr. Estrada, connected to DR. Woodall. Received new orders for Xanax 0.5mg PO ONCE and BIPAP. Orders read back and verified. Administered medication per MD order. Per Lead RT, BIPAP is not indicated at this time. Will continue to monitor.
--- NOTE | 2020-08-15 03:30 | NUR ---
Paged RT? Repositioned patient Patient's oxygen saturation maintaining in the mid 80s occasionally dropping to the 70s. Patient turned to side after being unable to tolerate proning. Patient's oxygen saturations now approximately 85-91. Patient on 10L via nasal cannula and 15L nonrebreather mask. Will continue to monitor.
--- NOTE | 2020-08-15 03:34 | NUR ---
AT BEDSIDE TO ASSESS PT. PT CALMLY LAYING ON RIGHT SIDE DOWN, ON NRB AT POX 92-93%. RN DEB COMMUNICATED PTS POX WAS CONSISTENT IN MID 70'S. PT HAS BEEN MEDICATED AND REPOSITIONED BY RNS, AND IS NOW CALM AND SATURATING ABOVE 90%. RNS AWARE RTS CAN BE PAGED AT ANY TIME THERE IS ANOTHER CONCERN WITH PTS BREATHING. RT LEAD Mary WHITTAKER COMMUNICATED ON PTS PRESENTATION.
[2020-08-15 05:00] VITALS: BP 127/91
[2020-08-15] MEDS: buPROPion HCL 75 MG TAB PO SCH (06:41)
[2020-08-15 07:17] LABS: Basophils # (auto) 0 10 ^3/uL (0-0.2); Basophils % (auto) 0.3 % (0.0-2.0); Eosinophils # (auto) 0.1 10 ^3/uL (0-0.8); Eosinophils % (auto) 0.4 % (0.0-7.0); Hematocrit 42.5 % (41.0-53.0); Hemoglobin 14.2 g/dL (13.5-17.5); Lymphocytes # (auto) 0.9 10 ^3/uL (0.4-5.4); Lymphocytes % (auto) 4.8 % (10.0-50.0); Mean Corpuscular Hemoglobin 31.5 pg (28.0-32.0); Mean Corpuscular Hgb Conc. 33.4 g/dL (32.0-36.0); Mean Corpuscular Volume 94.3 fL (80.0-100.0); Monocytes # (auto) 0.9 10 ^3/uL (0-1.3); Monocytes % (auto) 5.2 % (0.0-12.0); Neutrophils # (auto) 16.4 10 ^3/uL (1.6-8.6); Neutrophils % (auto) 89.3 % (37.0-80.0); Nucleated Red Blood Cells % 0.2 %; Platelet Count (auto) 235 10^3/uL (140-450); Red Blood Cells 4.51 10^6/uL (4.5-5.90); Red Cell Distribution Width 12.6 % (11.8-14.3); White Blood Cell 18.3 10^3/uL (4.4-10.8)
--- NOTE | 2020-08-15 07:20 | NUR ---
Paged Dr. Estrada/Oxygen saturation Patient's heart rate 170s-180s. Administered patient's PRN metoprolol. Patient's heart rate down but fluctuating from 100s-160s. Patient reports feeling anxious. Paged Dr. Estrada, awaiting call back. Patient's oxygen saturation maintaining low to mid 80s. RT at bedside. Patient switched to 15L oxymizer and 15L nonrebreather mask by RT. RT states possible need for BIPAP if oxygen saturations do not improve. Endorsed care to dayshift RN and made RN aware regarding patient's status.
--- NOTE | 2020-08-15 07:30 | NUR ---
Dr. Sean Estrada called back. Updated MD regarding patient's status. Received new order for Ativan 1mg PO BID. Order read back and verified. Will endorse.
[2020-08-15 07:40] LABS: Calcium 8.3 mg/dL (8.5-10.1)
[2020-08-15 07:49] LABS: BUN/Creatinine Ratio 23.7; CRP High Sensitivity 13.7 mg/dL (< 0.3)
--- NOTE | 2020-08-15 08:00 | NUR ---
Opening Shift Note Assumed care of patient, awake and alert. Patient found to be in respiratory distress with an O2 saturation of low to mid 80's with a HR in the 130's. Will attempt giving available PRN's to calm patient down and attempt to get O2 Sats to normal level. Instructed on POC and to call for assist PRN, will continue to monitor for changes Q1hr and PRN.
[2020-08-15 09:00] VITALS: BP 141/106
--- NOTE | 2020-08-15 09:00 | NUR ---
Physician Spoke to MD Estrada in regards to patient change in status and refusing to keep masks on. Per MD Estrada upgrade patient to ICU, give ativan, morphine, and inform pulmonology on case in regards to patients O2 Demand. Orders read back and verified. Will cont to monitor patient.
--- NOTE | 2020-08-15 09:01 | NUR ---
Charge Spoke to Roselia Olson in regarding to upgrade to ICU status. Per MD Olson, she will notify House sup. Will cont to monitor patient.
--- NOTE | 2020-08-15 09:15 | NUR ---
Charge Spoke to Charge Nurse Whitney, per Whitney, lead RT "Claire will come and assess the patient and determine whether patient will be intubated or not." Will cont to monitor patient.
--- NOTE | 2020-08-15 09:18 | NUR ---
PULMONOLOGY Paged MD Rich in regards to patients change is status. Awaiting call back at this time.
--- NOTE | 2020-08-15 09:20 | NUR ---
Charge Spoke to charge nurse Whitney. Per Whitney, RT Claire stated "there is only one ventilator left in the hospital and we have no ICU or [facility] beds at this time. MD Estrada aware. Will cont to monitor patient.
[2020-08-15] MEDS: HALOPERIDOL 1 MG TAB PO SCH (09:24)
[2020-08-15] MEDS ORDERED: LORazepam 2MG/ML-1ML VIAL IV PRN ×2 (09:30→15:45)
[2020-08-15] MEDS: DOCUSATE ORAL LIQUID 100 MG/10 ML UD GT SCH (10:00)
[2020-08-15] MEDS ORDERED: LORazepam 0.5 MG TAB PO SCH (10:00)
[2020-08-15] MEDS: PANTOPRAZOLE 40 MG/10 ML VIAL INJ IV SCH (10:05)
[2020-08-15] MEDS: ASPirin 325 MG TAB PO SCH (10:05)
[2020-08-15] MEDS: ASCORBIC ACID 500 MG TAB PO SCH (10:06)
[2020-08-15] MEDS: ENOXAPARIN SOD 60 MG/0.6 ML SYRINGE SC SCH (10:06)
[2020-08-15] MEDS: CHOLECALCIFEROL (VITD3) 2,000 UNIT CAP PO SCH (10:06)
[2020-08-15] MEDS: cloNIDine HCL 0.1 MG TAB PO SCH (10:07)
[2020-08-15] MEDS: METOPROLOL TARTRATE 50 MG TAB PO SCH (10:07)
[2020-08-15 13:00] VITALS: BP 145/97
[2020-08-15] MEDS ORDERED: LORazepam 2MG/ML-1ML VIAL IM ONE (13:00)
--- NOTE | 2020-08-15 13:10 | NUR ---
PT tx held today per RN. Addendum: 08/15/20 at 1311 by Rodney Watson PTA Amended: Links added.
[2020-08-15] MEDS ORDERED: LORazepam 2MG/ML-1ML VIAL IV ONE (13:30)
[2020-08-15] MEDS: MORPHINE SULF INJ 2 MG/ML SYRINGE 1ML IV PRN ×2 (13:30→18:11)
[2020-08-15] MEDS ORDERED: cefTRIAXone 1GM/50ML D5W 50 ML IV ONE (15:45)
[2020-08-15] MEDS ORDERED: cloNIDine 0.2 mg/24hr 7DAY PATCH TD SCH (15:45)
[2020-08-15] MEDS ORDERED: ACETAMINOPHEN 650 MG RECT SUPP PR PRN (15:45)
[2020-08-15] MEDS ORDERED: METOPROLOL TARTRATE 1MG/1ML-5ML VIAL IV PRN (15:45)
--- NOTE | 2020-08-15 15:48 | NUR ---
Physician MD Estrada at bedside, aware of patient status. New order received at this time. Will cont to monitor patient.
[2020-08-15] MEDS ORDERED: VANCOMYCIN PER PHARMACY 0 MG IV SCH (16:00)
[2020-08-15 16:54] VITALS: BP 119/84
--- NOTE | 2020-08-15 16:54 | NUR ---
Quiroz catheter insertion Patient assessed and determined to be in need of quiroz catheter. Order obtained from MD Estrada. Patient educated on catheter and reason for insertion. All questions answered. Quiroz catheter 16 guage Hong Konger inserted with clean sterile technique. Patient tolerated well.
[2020-08-15] MEDS ORDERED: VANCOMYCIN 1GM/250ML 250 ML IV ONE ×2 (17:15→18:30)
--- NOTE | 2020-08-15 17:45 | NUR ---
Radio Communication Coordinator MD Rich at bedside, aware of patient status. Per MD Rich, patient is to be upgraded to [facility] for reintubation. Per MD Rich, he "cannot intubate patient at this time." Will notify charge nurse of need for [facility] Bed and cont to monitor patient.
--- NOTE | 2020-08-15 18:45 | NUR ---
Respiratory Distress Patient found to be in respiratory distress, with O2 Saturations in the 70's and trending down to low 50's. Patient removed BIPAP mask. Refusing to keep it on. Attempts to place patient on BIPAP made multiple times. RT at bedside. Unsuccessful attempts to bring O2 Sats up. Code assist called. LOCOMOTIVE ENGINEER ELECTRIC Demarcus at bedside for intubation. Successful intubation. patient will be transferred to [facility].
--- NOTE | 2020-08-15 19:20 | NUR ---
Patient transferred to [facility] to ARIS Carvajal post intubation by BENJAMIN Tracy.
[2020-08-15] MEDS ORDERED: SUCCINYLCHOLINE CHLORIDE 20 MG/ML 10ML VIAL IV ONE ×2 (19:34→21:00)
[2020-08-15] MEDS ORDERED: ETOMIDATE (2MG/ML) 20ML VIAL IV ONE ×3 (19:35→21:00)
--- NOTE | 2020-08-15 20:14 | NUR ---
PT PRESENTS IN RESPIRATOY DISTRESS WITH INCREASING AGITATION AND A FAILURE TO MAINTAIN AIRWAY. PT INTUBATED BY BENJAMIN GUTIERREZ WITH AN 8.0 ETT AND SECURED BY SAMMIE AT 24 UPPER LIP. CUFF PRESSURE IS FIRM. TUBE PLACEMENT CONFIRMED BY POSITIVE CAPNOMETER COLOR CHANGE, CONDENSATION IN THE TUBING, AND BILATERAL CHEST RISE. PT AWAITING TRANSFER TO [facility]. WILL DRAW POST INTUBATION ABG.
[2020-08-15] MEDS ORDERED: MIDAZOLAM DRIP 50 mg/50mL 50 ML IV SCH (20:15)
[2020-08-15] MEDS ORDERED: fentaNYL Drip 2500mCg/250mlNS 250 ML IV SCH (20:15)
--- NOTE | 2020-08-15 20:39 | NUR ---
KING NUNEZ PT ARRIVED IN [facility] ROOM 265 AT 2024. PT TRANSFERRED TO [facility] BED. HR DECREASED FROM 150BPM TO 50BPM AND PULSE LOST. KING NUNEZ CALLED. SEE [facility]ING [facility]UE SHEET FOR MORE DETAILS.
--- NOTE | 2020-08-15 21:16 | NUR ---
FAMILY MADE SEVERAL ATTEMPTS TO CONTACT FAMILY. NO ANSWER. WILL CONTINUE TO TRY TO REACH FAMILY.
--- NOTE | 2020-08-15 21:21 | NUR ---
[facility] CALLED. THIS RN WAS INFORMED THAT PATIENT IS RELEASED DUE TO PATIENT BEING COVID POSITIVE. REFERENCE# [id number]
--- NOTE | 2020-08-15 21:24 | NUR ---
MD BURCH RETURNED CALL ON BEHALF OF PATIENTS PRIMARY MD OF PT STATUS. INFORMED MD BURCH OF TOD AND DIAGNOSIS.
--- NOTE | 2020-08-15 21:32 | NUR ---
PAYMENT COLLECTOR PAYMENT COLLECTOR CALLED. SPOKE TO NICKY. PAYMENT COLLECTOR NOTIFIED. CASE # [id number].
--- NOTE | 2020-08-15 21:43 | NUR ---
FAMILY SPOKE WITH BENJAMIN, PATIENTS . SHE WAS ALREADY INFORMED OF PATIENTS PASSING. SHE SAID HER FATHER VALERIA SNIDER" WAS GOING TO BE MAKING ARRANGEMENTS FOR HIS BODY. BENJAMIN STATED SHE COULD NOT COME DOWN TO SEE BODY THAT SHE WAS INFECTED HERSELF AND HUNG UP.
--- NOTE | 2020-08-15 21:58 | NUR ---
[facility] SPOKE WITH VARUN IN REGARDS TO A COURTESY HOLD UNTIL FAMILY CAN MAKE ARRANGEMENTS. VARUN SAID SHE WILL CALL BACK.
--- NOTE | 2020-08-15 22:05 | NUR ---
[facility] SPOKE WITH VARUN AND THEY ARE WILLING TO DO A COURTESY HOLD UNTIL FAMILY CAN INDEPENDENT BEAUTY CONSULTANT REMAINS. WAITING FOR LOAN BROKER TO CALL BACK TO RELEASE BODY.
--- NOTE | 2020-08-16 00:09 | NUR ---
WHEELAGE CLERK Lázaro. CONTAINER FILLER AUDREY LORENZO CALLED. PATIENT IS CLEARED AND CORONERS WILL FORWARD CASE TO PUBLIC HEALTH DEPARTMENT. NO REPORT #NEEDED ACCORDING TO DEPUTY LORENZO. WILL CONTACT [employer] TO POKER ROOM MANAGER BODY AND HOLD UNTIL FAMILY IS ABLE TO MAKE ARRANGEMENTS. ATTEMPTED TO CONTACT BENJAMIN "". NO ANSWER AND ANSWERING MACHINE IS FULL. WILL CONTINUE TO REACH FAMILY. SPOKE WITH VARUN FROM [employer]. TRANSPORT TO POKER ROOM MANAGER PATIENT IS ALL SET.
[2020-08-16] MEDS ORDERED: VANCOMYCIN 1GM/250ML 250 ML IV SCH (01:00)
--- NOTE | 2020-08-16 01:25 | NUR ---
BODY BAG PATIENT BODY PLACED IN BODY BAG X2. LABELS ON BAG, PATIENT AND BELONGINGS.
[2020-08-16] MEDS ORDERED: EPINEPHrine HCL 1 MG/10 ML SYRG IV ONE (01:44)
[2020-08-16] MEDS ORDERED: SODIUM BICARBONATE 8.4% INJ 50ML SYRINGE IV ONE (01:44)
--- NOTE | 2020-08-16 01:47 | NUR ---
BODY PICKED UP AFFORDABLE CREMATION PICKED PATIENT BODY UP.
[2020-08-16 04:19] VITALS: BP 126/72
[2020-08-16] MEDS ORDERED: cefTRIAXone 1GM/50ML D5W 50 ML IV SCH (09:00)
== END 2020-08-16 01:45 | disposition expired | DRG 130 ==
LOC: ER 07:47 → ICU CENTRL 12:36 → TELE 08-02 00:37 → ICU WEST 08-07 23:19 → TELE-E-ADS 08-14 03:13 → ICU CENTRL 08-15 20:20
PROVIDERS: ADMIT Emergency Medicine; ATTEND Internal Medicine
PROC: 5A1955Z Respiratory Ventilation, Greater than 96 Consecutive Hours (ICD-10-PCS; principal; 2020-08-01)
PROC: 0BH17EZ Insertion of Endotracheal Airway into Trachea, Via Natural or Artificial Opening (ICD-10-PCS; 2020-08-01)
PROC: 02HV33Z Insertion of Infusion Device into Superior Vena Cava, Percutaneous Approach (ICD-10-PCS; 2020-08-01)
PROC: XW033E5 Introduction of Remdesivir Anti-infective into Peripheral Vein, Percutaneous Approach, New Technology Group 5 (ICD-10-PCS; 2020-08-03)
PROC: 5A09357 Assistance with Respiratory Ventilation, Less than 24 Consecutive Hours, Continuous Positive Airway Pressure (ICD-10-PCS; 2020-08-15)
PROC: 5A12012 Performance of Cardiac Output, Single, Manual (ICD-10-PCS; 2020-08-16)
DX: U07.1 COVID-19 (principal); J12.89 Other viral pneumonia; J96.01 Acute respiratory failure with hypoxia; I48.0 Paroxysmal atrial fibrillation; N17.0 Acute kidney failure with tubular necrosis; K21.9 Gastro-esophageal reflux disease without esophagitis; I10 Essential (primary) hypertension; E66.9 Obesity, unspecified; I27.20 Pulmonary hypertension, unspecified; E87.6 Hypokalemia; F41.9 Anxiety disorder, unspecified; J15.9 Unspecified bacterial pneumonia; I25.2 Old myocardial infarction; I46.9 Cardiac arrest, cause unspecified; E78.5 Hyperlipidemia, unspecified; G93.41 Metabolic encephalopathy; F17.210 Nicotine dependence, cigarettes, uncomplicated; Z91.19 Patient's noncompliance with other medical treatment and regimen; R74.01 Elevation of levels of liver transaminase levels; Z88.5 Allergy status to narcotic agent; B95.62 Methicillin resistant Staphylococcus aureus infection as the cause of diseases classified elsewhere; Z68.31 Body mass index [BMI] 31.0-31.9, adult
CPT/HCPCS: 36415; 36600; 71045; 71275; 80048; 80053; 80076; 81001; 82728; 82805; 82962; 83615; 83735; 83880; 84484; 85025; 85379; 85610; 85730; 86141; 87070; 87077; 87081; 87186; 87205; 87426; 93005; 93306; 93970; 94002; 94003; 94640; 94660; 97110; 97530; C9113; G0378; J0330; J0696; J1100; J1956; J2250; J2704; J3480; J3490; J7060